=== PATIENT | female | born 1935 | race Caucasian/White ===

== ENCOUNTER 2018-09-28 07:11 | Emergency (ER) | payer MEDICARE, OTHER, SELFPAY ==
[2018-09-28 07:13] VITALS: BP 179/96; PULSE 91; RESP 18; TEMP 36.9; O2SAT 94; BMI 33.3
[2018-09-28 07:38] VITALS: BP 167/113; PULSE 84; RESP 13; O2SAT 96
[2018-09-28] MEDS: MethylPREDNISolone 125 MG/2 ML Vial IV (07:41)
[2018-09-28] MEDS: DiphenhydrAMINE 50 MG/ML Syringe 25 MG IV (07:41)
--- NOTE | 2018-09-28 07:54 | ED.VISSUMM ---
- ER Visit Summary Date of Service: 09/28/18 Chief Complaint: Facial swelling History of Present Illness: The patient is a [address] Magdiel Lorenzo III. She reports she had a woke this morning with swelling to her lower lip and right side of her face. States she had a similar episode approximately 5 weeks ago and they stopped lisinopril. She was placed on amlodipine and was doing well until today. Patient reports that she has been on desipramine for approximately 5 years for anxiety. She denies any other medications. Patient denies any change in soap, shampoo, laundry detergent, or fabric softener. No new clothing, bedding, carpeting, or pets. No new medications in the past month. Review of systems: General: No fever, chills, cold sweats. Cardiovascular: No chest pain, palpitations. Respiratory: No cough, shortness of breath, dyspnea on exertion. Gastrointestinal: No abdominal pain, nausea, vomiting, diarrhea, melena, or hematochezia. Genitourinary: No dysuria, frequency, hematuria. Skin: No rash. Neuro: No headache, numbness, weakness. Physical Examination: Vitals: Stable. Afebrile. General: Well-nourished and well-developed. Head: Normocephalic atraumatic. HEENT: Angioedema of the right lower lip and cheek. There is no involvement of her tongue or pharynx. Neck: Supple, no lymphadenopathy. No JVD. Nontender. Cardiovascular: Regular rate and rhythm. No murmurs. Respiratory: No respiratory distress. Clear to auscultation bilaterally. Abdominal: Soft, nontender, nondistended, normal bowel sounds. No guarding, rebound, or peritoneal signs. Back: Nontender. Extremities: Nontender, no edema. Skin: Normal color, no rash. Neurologic: Alert and oriented ?3. Cranial nerves II through XII are intact. Normal strength and sensation. Psych: Normal affect. Emergency Department Course and Treatment: Patient had an IV placed. She was given Benadryl, Solu-Medrol, and Pepcid IV. She has been observed over the course of 2 hours. Her symptoms are improving. Treatment Plan: Patient was discussed with her primary care physician Dr. Magdiel Lorenzo iii. At this time she will be instructed to stop the desipramine as it can cause angioedema as well. She will have this replaced with low-dose Zoloft 25 mg a day. It does not appear that amlodipine will cause angioedema. She will be placed on Pepcid, Zyrtec, and prednisone. Instructed to follow-up Dr. Ann in 2 weeks for another exam. Return to the emergency department for any worsening symptoms. Disposition: To home in improved and stable condition. Impression: 1. Angioedema. This note was generated with [employer] dictation software. It may contain incorrect words, spelling, and punctuation that were not noted in review of the chart prior to signing ED Disposition - Plan for ED Patient: Disposition: Home or Assisted Living Instructions: ED Angioedema Prescriptions: Cetirizine HCl [Zyrtec] 10 mg PO DAILY #14 capsule Prednisone [Deltasone] 40 mg PO DAILY #10 tablet Sertraline HCl [Zoloft] 25 mg PO DAILY #30 tablet Famotidine [Pepcid] 20 mg PO BID #28 tablet Referrals: Magdiel Lorenzo III, MD [Primary Care Provider] - 1-2 Weeks
[2018-09-28 08:52] VITALS: BP 146/88; PULSE 84; RESP 18; O2SAT 97
[2018-09-28 08:57] VITALS: BP 147/78; PULSE 87; RESP 16; O2SAT 97
== END 2018-09-28 08:58 | disposition home or self-care (01) ==
LOC: ED 07:50
PROVIDERS: Emergency Provider Emergency Medicine; Family Provider Family Medicine; PCP Family Medicine
DX: T78.3XXA Angioneurotic edema, initial encounter (principal); F41.9 Anxiety disorder, unspecified; I10 Essential (primary) hypertension; Z85.3 Personal history of malignant neoplasm of breast; Z79.899 Other long term (current) drug therapy
CPT/HCPCS: 96374; 96375; 99284; J7050; A4216; J3490

== ENCOUNTER 2018-11-18 10:18 | Emergency (ER) | payer MEDICARE, OTHER, SELFPAY ==
[2018-11-18 10:22] VITALS: BP 138/93; PULSE 101; RESP 17; TEMP 36.3; O2SAT 96; BMI 33.3
--- NOTE | 2018-11-18 10:42 | CT_ITS ---
STUDY: CT SOFT TISSUE NECK WITH CONTRAST REASON FOR EXAM: Female, 83 years old. Tongue swelling. History of breast cancer and radiation. RADIATION DOSAGE (If Supplied By Facility): CTDIvol = ( 22.45 ) mGy, DLP = ( 728.86 ) mGycm TECHNIQUE: The patient was scanned in a multi-detector CT scanner. High resolution transaxial imaging was performed following intravenous administration of 75 IV Isovue 370. Sagittal and coronal images were reconstructed. Individualized dose optimization techniques were used for this CT. COMPARISON: None. FINDINGS: Asymmetric edema of the mobile portion of the tongue, right greater than left. The base of the tongue is normal. No enhancing abscess or phlegmon. The lingual tonsils are normal and symmetrical. Normal bilateral parotid glands. Normal bilateral resident care spec spaces. Normal bilateral parapharyngeal spaces. Normal bilateral carotid spaces. Normal bilateral sublingual and submandibular glands and spaces. Normal visualized nasopharynx. Normal retropharyngeal space. Normal perivertebral space. Normal visualized bilateral faucial tonsils. The visualized tongue, tongue base and oropharynx are normal. The visualized cervical lymph nodes (levels I-) are within normal size limits, and maintain normal morphology. There is no demonstrated solid or cystic mass lesion. There is no abnormal contrast enhancement. Normal epiglottis, bilateral vallecula and hypopharynx. The pre-epiglottic and paraglottic adipose spaces are normal. Normal visualized bilateral piriform sinuses, aryepiglottic folds, vocal cords, and arytenoid-cricoid articulations. Normal subglottic trachea. Normal bilateral lobes of the thyroid gland. 2 mm noncalcified and indeterminate nodule in the right lung apex (series 2, images 39; series 602, images 70-71). Normal visualized paranasal sinuses. Degenerative disc space height narrowing at C3-C4, C4-C5 and C5-C6 disc space levels. Minimal degenerative retrolisthesis of C4 on C5 and C5 on C6. Minimal degenerative anterolisthesis of T2 on T3. No acute osseous abnormality. CT/Soft Tissue Neck WITH Contrast IMPRESSION: 1. Asymmetric swelling in the mobile portion of the tongue, right greater than left without enhancing abscess or phlegmon. This may be due to allergic reaction causing lingual swelling. 2. 2 mm noncalcified and indeterminate pulmonary nodule in the right lung apex. 3. Degenerative disc space height narrowing at C3-C4, C4-C5 and C5-C6 disc space levels. 4. Minimal degenerative retrolisthesis of C4-C5 and C5 on C6. 5. Minimal degenerative anterolisthesis of T2 on T3. Electronically Signed: Sunny Riley MD at 12:50 EDT , Service support ,
[2018-11-18] MEDS: DiphenhydrAMINE 50 MG/ML Syringe 25 MG IV (11:02)
--- NOTE | 2018-11-18 11:02 | ED.DCSUM_ITS ---
- ER Visit Summary Date of Service: 11/18/18 Chief Complaint: Tongue swelling History of Present Illness: The patient is a 83 F who presents with tongue swelling. Symptoms started earlier today. She has noted a mild change to her voice. No trouble breathing or swallowing. No other associated swelling. She is not sure what brought this on. She had prior episodes, and she stopped all of her medications including lisinopril. She is now on totally new medications. No other exposures to anything. No fevers or other associated symptoms. Physical Examination: Afebrile and vital signs are unremarkable. Patient alert and oriented. No acute distress. HEENT exam is unremarkable except for diffuse tongue swelling. The tongue is otherwise unremarkable. Oropharynx otherwise unremarkable. Airway intact. No stridor or drooling. Lungs clear. Heart regular. Skin and neck are unremarkable. Test Results: Labs and imaging are pending. Emergency Department Course and Treatment: Patient was treated with Benadryl, prednisone, famotidine while awaiting results. Lab work unremarkable. CT showed asymmetric swelling of the mobile tongue worse on the right side. Right lung nodule. Degenerative spine changes. On reevaluation, patient is much improved. Swelling has decreased. Voice is back to normal. No new or different symptoms. Patient will continue prednisone, Benadryl, famotidine at home. Follow-up with her doctor. Return for any new or worsening issues. Treatment Plan: As above Disposition: Discharge Impression: 1. Tongue swelling 2. Right lung nodule This note was generated with [employer]ation software. It may contain incorrect words, spelling, and punctuation that were not noted in review of the chart prior to signing ED Disposition - Plan for ED Patient: Referrals: Magdiel Lorenzo III, MD [Primary Care Provider] -
[2018-11-18] MEDS: predniSONE 20 MG Tablet 40 MG PO (11:03)
[2018-11-18 11:14] LABS: Absolute Lymphocyte Count 0.73 X10^3/ul (0.83-4.51); Absolute Neutrophil Count 4.3 X10^3/uL (2.0-7.7); Basophil# 0.02 X10^3/uL; Basophil% 0.4 % (0-1); Eosinophil# 0.05 X10^3/uL; Eosinophils% 0.9 % (0-5); Hematocrit 39.7 % (37-47); Hemoglobin 12.7 g/dl (12.0-15.0); Lymphocyte # 0.73 X10^3/ul (4.0); Lymphocyte % 13.2 % (19-41); Mean Corpuscular Hgb 29.7 pg (27.0-32.0); Mean Corpuscular Volume 92.8 fL (81-99); Mean Platelet Vol. 9.6 fl (6.2-12.0); Monocyte# 0.43 X10^3/uL; Monocyte% 7.8 % (0-10); Neutrophil # 4.31 X10^3/uL (2.7-7.7); Neutrophil % 77.7 % (47-70); Platelet Count 234 K/mm3 (150-450); RBC Distribution Width CV 14.7 % (11.6-14.6); RBC Distribution Width SD 49.5 fl (35.1-43.9); Red Blood Count 4.28 M/mm3 (4.2-5.4); White Blood Count 5.5 K/mm3 (4.4-11.0)
[2018-11-18 11:15] LABS: POSITIVE COUNT NO; POSITIVE DIFFERENTIAL NO; POSITIVE MORPHOLOGY NO
[2018-11-18 11:24] LABS: Anion Gap 5 (5-15); BUN 16 mg/dL (7-18); BUN/Creat Ratio 17.9 RATIO (10-20); Calcium,Total 9.1 mg/dL (8.5-10.1); Chloride 106 mmol/L (98-107); EST Glomerular Filtration Rate 64 mL/min (>60); Est Glom Filt Rate - Afr Amer 78 mL/min (>60); Estimated Creatinine Clearance 45.89 ml/min; Glucose 99 mg/dL (74-106); Potassium 3.2 mmol/L (3.5-5.1); Sodium Level 139 mmol/L (136-145)
[2018-11-18 12:38] VITALS: BP 154/83; PULSE 87; RESP 15; O2SAT 97
--- NOTE | 2018-11-18 13:59 | ED.DEP ---
ED Disposition - Plan for ED Patient: Instructions: Angioedema Prescriptions: DiphenhydrAMINE [Benadryl] 25 mg PO TID PRN PRN 5 Days #15 cap PRN Reason: Swelling Prescription Printed Prednisone [Deltasone] 40 mg PO DAILY #10 tab Prescription Printed Famotidine [Pepcid] 20 mg PO BID 5 Days #10 tab Prescription Printed Referrals: Magdiel Lorenzo III, MD [Primary Care Provider] -
[2018-11-18 14:34] VITALS: BP 120/96
== END 2018-11-18 14:37 | disposition home or self-care (01) ==
LOC: ED 11:03
PROVIDERS: Emergency Provider Emergency Medicine; Family Provider Family Medicine; PCP Family Medicine
DX: R22.0 Localized swelling, mass and lump, head (principal); R91.1 Solitary pulmonary nodule; I10 Essential (primary) hypertension; Z79.899 Other long term (current) drug therapy; Z87.891 Personal history of nicotine dependence
CPT/HCPCS: 70491; 80048; 85025; 96374; 96375; 99283; Q9967; J3490

== ENCOUNTER 2019-02-11 11:11 | Emergency (ER) | payer MEDICARE, OTHER, SELFPAY ==
[2019-02-11 11:12] VITALS: BP 156/64; PULSE 102; RESP 18; TEMP 36.9; O2SAT 94; BMI 32.6
[2019-02-11] MEDS: DiphenhydrAMINE 50 MG/ML Syringe 25 MG IV (11:50)
[2019-02-11] MEDS: MethylPREDNISolone 125 MG/2 ML Vial IV (11:50)
[2019-02-11 13:10] VITALS: BP 143/79; PULSE 79; RESP 23; O2SAT 90
--- NOTE | 2019-02-11 14:54 | ED.DCSUM_ITS ---
- ER Visit Summary Date of Service: 02/11/19 Chief Complaint: Tongue swelling History of Present Illness: The patient is a 83 F with right side tongue swelling that started around 8:30 AM today. She ate Monegasque toast. She denies any new food exposures or medication exposures. She was previously on lisinop ril and had an episode like this in the past in October 2018. She was treated with prednisone, Benadryl, and Pepcid. Her symptoms resolved gradually over time. She did not follow-up for this. She denies any other associated symptoms or complaints. Physical Examination: Afebrile and vital signs unremarkable. She does have right side tongue swelling only. The mouth otherwise is normal. Lips normal. Neck normal. Skin normal. Speech is slightly slurred/dysarthric. Lungs are clear. Test Results: None performed Emergency Department Course and Treatment: Patient was monitored. Treated with Benadryl, Pepcid, Solu-Medrol. She was observed for almost 4 hours. She improved quickly over the first hour and then she continued to gradually improve over the next few hours. Her voice returned to normal. She had no new or different symptoms. Will prescribe Benadryl, Pepcid, prednisone. Patient will follow-up with her PCP for outpatient monitoring and allergy testing. Risks were discussed, and patient understands. Treatment Plan: As above Disposition: Discharge Impression: 1. Tongue swelling This note was generated with [employer] dictation software. It may contain incorrect words, spelling, and punctuation that were not noted in review of the chart prior to signing ED Disposition - Plan for ED Patient: Referrals: Magdiel Lorenzo III, MD [Primary Care Provider] -
--- NOTE | 2019-02-11 14:56 | ED.DEP ---
ED Disposition - Plan for ED Patient: Instructions: ED Angioedema Prescriptions: DiphenhydrAMINE [Benadryl] 25 mg PO TID 5 Days #15 cap Prescription Printed Famotidine [Pepcid] 20 mg PO BID 5 Days #10 tab Prescription Printed Prednisone 40 mg PO UD 4 Days #16 tab Prescription Printed Referrals: Magdiel Lorenzo III, MD [Primary Care Provider] -
[2019-02-11 15:15] VITALS: BP 136/93; PULSE 85; RESP 16; O2SAT 92
== END 2019-02-11 15:16 | disposition home or self-care (01) ==
LOC: ED 11:45
PROVIDERS: Emergency Provider Emergency Medicine; Family Provider Family Medicine; PCP Family Medicine
DX: R22.0 Localized swelling, mass and lump, head (principal); I10 Essential (primary) hypertension; F41.9 Anxiety disorder, unspecified; Z79.899 Other long term (current) drug therapy; Z87.891 Personal history of nicotine dependence
CPT/HCPCS: 96374; 96375; 99284; J7050; J3490

== ENCOUNTER 2020-10-09 08:00 | Outpatient (RCR) | payer MEDICARE, OTHER, SELFPAY | END 2020-11-13 23:59 | LOC: IMMUN 08:00 | PROVIDERS: PCP Family Medicine; Referring Provider Family Medicine; Visit Provider Family Medicine | DX: Z23 Encounter for immunization (principal) | CPT/HCPCS: 0001A; 0002A; 91300 ==

== ENCOUNTER 2020-12-26 09:55 | Emergency (ER) | payer MEDICARE, OTHER, SELFPAY ==
[2020-12-26 09:56] VITALS: BP 164/81; PULSE 86; RESP 16; TEMP 36.7; O2SAT 95; BMI 35.7
--- NOTE | 2020-12-26 10:06 | RAD_ITS ---
STUDY: X-RAY - PELVIS AND LEFT HIP REASON FOR EXAM: Female, 85 years old. Pain. No known injury. TECHNIQUE: 3 views of the pelvis and hip. COMPARISON: Comparison is made with prior examination dated 12/11/2012. FINDINGS: There is a non-specific bowel gas pattern. There are multiple calcified phleboliths. There is narrowing with cortical sclerosis and osteophyte formation of the sacroiliac joint consistent with degenerative osteoarthritic changes. Normal bilateral superior and inferior pubic rami. Normal pubic symphysis. Normal bilateral ischial tuberosities. The patient is status post right total hip replacement. The alignment. Normal visualized femoral head. Normal acetabulum. There is mild articular joint space narrowing of the hip. 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 Electronically Signed: Adrian Valadez MD at 11:11 EDT , Service support ,
--- NOTE | 2020-12-26 10:07 | EX.ED.DYSGE1 ---
HPI History of Present Illness Chief Complaint: Lower Extremity Injury Informant: patient and spouse/S.O. Onset/Context/Timing Onset: Days (4 days) Context: Gradual Onset Timing: Waxes and wanes Current Severity: Mild Maximum Severity: Moderate Narrative Narrative: Patient presents secondary left hip and groin pain. Symptoms of been ongoing for the past 4 days. She denies any specific injury but does note increased activity over the past 3 weeks. She states she has had similar pain in the past but typically would go away on its own. Pain is been more persistent with this round. She denies paresthesias. No back pain. [facility] Medical History Anxiety disorder Breast cancer, right HTN (hypertension) Home Medications amlodipine 5 mg PO DAILY 09/28/18 [History Last Taken 11/18/18] sertraline [Zoloft] 25 mg PO DAILY #30 tab 09/28/18 [Rx Last Taken 11/18/18] hydrochlorothiazide 12.5 mg PO DAILY 11/18/18 [History Last Taken 11/18/18] hydrocodone-acetaminophen 1 tab PO Q6H PRN 3 Days #10 tab 12/26/20 [Rx Last Taken Unknown] Allergy/AdvReac Type Severity Reaction Status Date / Time desipramine Allergy Angioedema Verified 12/26/20 09:56 lisinopril Allergy Angioedema Verified 12/26/20 09:56 shrimp Allergy Upset Verified 12/26/20 09:56 Stomach Surgical History S/P hip hemiarthroplasty Social History Smoking Status: Current some day smoker tobacco type: cigarettes ROS ROS ED Constitutional Constitutional ED: Denies chills or fever(s) Eyes Eyes: Denies change in vision ENT ENT ED: Denies sore throat Cardiovascular Cardiovascular: Denies chest pain Respiratory/Chest Respiratory/Chest: Denies cough or dyspnea Gastrointestinal Gastrointestinal: Denies abdominal pain, diarrhea, nausea or vomiting Genitourinary Genitourinary ED: Denies dysuria Musculoskeletal Musculoskeletal: Reports arthralgias; Denies back pain Integumentary Denies rash Neurologic Neurologic: Denies headache(s), paresthesias or weakness Allergic/Immunologic Allergic/Immunologic ED: Denies urticaria EXAM Physical Exam Const Vital Signs: 12/26/20 09:56 Temperature 98.1 F Temperature Source Oral Pulse Rate 86 Respiratory Rate 16 Blood Pressure 164/81 H Blood Pressure Mean 108 Pulse Ox 95 Oxygen Delivery Method Room Air Positive well nourished and well developed General Appearance ED: well developed HEENT Reports normocephalic and head/scalp atraumatic Eyes PERRL and EOMs intact bilaterally Neck supple Chest Wall inspection of chest normal and palpation of chest normal Resp normal respiratory effort and clear to auscultation bilaterally Cardio regular rate and regular rhythm GI normal to inspection, nondistended, normoactive bowel sounds Palpation: soft Extremity normal to inspection Extremity Narrative: Minimal tenderness over the anterior left hip. Noted lateral tenderness. Full range of motion without difficulty. Strong distal pulses and normal sensation. Neuro oriented x3 and no sensory deficits noted Sensorium / Orientation: alert Motor Exam: strength 5/5 throughout Psych mental status grossly normal Skin no rashes or lesions noted MDM MDM MDM Narrative Medical decision making narrative: Left hip and pelvis x-rays obtained. Radiography Diagnostic Testing: Radiology Impression Hip/Pelvis X-Ray 12/26/20 10:06 IMPRESSION: Mild degree of degenerative changes of the left hip joint. Electronically Signed: Adrian Valadez MD at 11:11 EDT , Service support , Treatment and Re-Evaluation Comments:: X-ray per my interpretation reveals no acute fracture. Radiologist interpretation is also reviewed. Test results discussed with the patient. She has an appointment to see orthopedics in early December. She will be given a prescription for [place] which she will use only if pain is unbearable. She will try using Tylenol and ibuprofen. Discharge Plan Triage Chief Complaint: Lower Extremity Injury ED Provider: Rajni Hensley Dx/Rx/DC Orders Clinical Impression: Strain of left groin Instructions: ED Groin Strain Prescriptions: New hydrocodone-acetaminophen 5-325 mg tablet 1 tab PO Q6H PRN (Reason: pain) 3 Days Qty: 10 RF: 0 No Action amlodipine 5 MG tablet 5 mg PO DAILY RF: 0 sertraline [Zoloft] 25 MG tablet 25 mg PO DAILY Qty: 30 RF: 0 hydrochlorothiazide 12.5 MG tablet 12.5 mg PO DAILY RF: 0 Primary Care Provider: Sam York Referrals: Sam York MD [Primary Care Provider] - 1 Week if not improving Disposition Disposition: Home, Self Care
[2020-12-26 11:46] VITALS: BP 168/74; RESP 16; O2SAT 100
== END 2020-12-26 11:49 | disposition home or self-care (01) ==
PROVIDERS: Emergency Provider Emergency Medicine; PCP Family Medicine
DX: S39.011A Strain of muscle, fascia and tendon of abdomen, initial encounter (principal); F17.210 Nicotine dependence, cigarettes, uncomplicated; I10 Essential (primary) hypertension; X58.XXXA Exposure to other specified factors, initial encounter; Z79.899 Other long term (current) drug therapy
CPT/HCPCS: 73502; 99282

== ENCOUNTER 2021-02-07 07:00 | Outpatient (RCR) | payer MEDICARE, OTHER, SELFPAY ==
--- NOTE | 2021-01-10 08:16 | HP.PTEVAL_ITS ---
Patient's Visit Information RADHA WATTS is a 85 year old F referred to Physical Therapy by DENISSE Mon with a diagnosis of L groin strain goes by Lisa. Date of Evaluation: 01/10/21 Physical Therapist: Otilio Clay, PT, ATC - Visit Plan Frequency: 3x /Week Duration: 4-6 Weeks Plan: B LE strengthening, core strengthening, B LE stretching, bike, and HEP - Subjective Pt reports her L hip has been sore for 3 weeks. Pt reports she had an xray, which revealed no significant findings other than a L groin strain. Pt reports she really doesnt have a lot of pain, just some weakness. Pt reports she has never used an AD, but now she has to secondary to not feeling steady. Pt reports she always worked out prior to [facility], but has stayed home since that. No tingling or numbness in her L groin region. No sleep difficulty secondary to pain. Pt reports she has stairs in her house, and notes she has to use her hand rails secondary to LE weakness. Pt reports no LBP at this time. Pt reports no pain currently, and notes she has not had pain over the past week. - Pain L groin Pain Intensity (Out of 10): 0 - Objective Neuro: B LE sensation is WNL to light touch. B patellar reflex= 2/3. ROM: B LE's are WFL. MMT: B LE's are rated at 4-/5. Gait: Pt ambulates with a trendelenburg gait pattern indicating mild core weakness. Stairs: Pt negotiates stairs reciprocally, but requires 2 hand rails - Goals Goal 1:: Increase B LE strength x 1 grade to aid with stair negotiation Goal Time Frame: 4-6 Weeks Goal 2:: Decrease L groin pain x 100% to aid with ambulation Goal Time Frame: 4-6 Weeks Goal 3:: I with HEP Goal Time Frame: 4-6 Weeks - Rehabilitation Potential Physical Therapy Diagnosis: Pt has difficulty with stair negotiation, and difficulty with IADLS secondary to generalized debility. Rehabilitation Potential: Good - Anticipated Interventions Patient/Client Instruction: Educate patient on: Condition, Plan of Care For the Purpose of:: To improve self management Therapeutic Exercise to Include: Strength training, Endurance training, Balance training, Flexibilty training, Gait and locomotor training, Active ROM For the Purpose of:: To decrease pain, To improve muscle performance and motor f unction, To improve gait and locomotor functions Thank you for the opportunity to evaluate your patient. For Medicare and Medicare HMO plans, please review the plan of care and approve it. It will need to be FAXED BACK to us at [phone] for Medicare purposes. For Medicare only, by signing this I certify the plan of care. Please let me know if there are questions or concerns regarding this plan of care. Physician Signature: Date:
--- NOTE | 2021-02-07 07:24 | HP.PTDCSUM ---
It has been my pleasure to treat RADHA WATTS referred by DENISSE Mon, with the diagnosis of L groin strain goes by Lisa for a total of 13 visit(s). Discharge Date: Please see the following information for a summary of their discharge status. Subjective: Pt reports no pain this date. Ready for discharge L groin Pain Intensity (Out of 10): 0 % Improvement: 100 Objective/Function: L hip pain 0/10. B LE strength 5/5 throughout. Pt is I with HEP. Rx goals achieved Goal 1:: Increase B LE strength x 1 grade to aid with stair negotiation Goal Progress: Goal Met Goal 2:: Decrease L groin pain x 100% to aid with ambulation Goal Progress: Goal Met Goal 3:: I with HEP Goal Progress: Goal Met Plan: Discharge If there are questions or concerns regarding this patient's physical therapy, please feel free to call me at [phone]. Thank you for the referral of this patient. Sincerely, Otilio Clay, PT, ATC Balance/Gait/Functional tests - Balance/Special Test Scores Lower Extremity Functional Score: 62
== END 2021-02-07 19:00 | disposition home or self-care (01) ==
LOC: PT 07:00
PROVIDERS: PCP Family Medicine; Referring Provider Physician Assistant Surgical; Visit Provider Physician Assistant Surgical
DX: M16.12 Unilateral primary osteoarthritis, left hip (principal)
CPT/HCPCS: 97110; 97161; 97164

== ENCOUNTER 2024-06-12 13:20 | Inpatient (IN) | payer MEDICARE, OTHER, SELFPAY ==
[2024-06-12] VITALS (13 sets, daily range): BP systolic 140–167; BP diastolic 74–101; PULSE 71–96; RESP 14–24; TEMP 35.6–36.6; O2SAT 82–96; BMI 34.5; BMI 33.5
--- NOTE | 2024-06-12 14:11 | CT_ITS ---
STUDY: CTA CHEST REASON FOR EXAM: Female, 88 years old. Hypoxia. RADIATION DOSAGE (If Supplied By Facility): CTDIvol = ( 12.4 ) mGy, DLP = ( 484.77 ) mGycm TECHNIQUE: The examination was performed with the intravenous administration of IV 100mL Isovue-370. Post-processing of the angiographic images was performed, with multiplanar reformation and 3D reconstruction. Individualized dose optimization techniques were used for this CT. COMPARISON: None. FINDINGS: Intraluminal filling defects in the proximal aspect of the right upper lobe pulmonary artery and its distal branches. There is also evidence of a intraluminal filling defects in the posterior right upper lobe pulmonary arterial branches in keeping with pulmonary emboli. Intraluminal filling defects are also seen in branches of the left upper lobe pulmonary artery. Smaller intraluminal filling defects seen in branches of the left lower lobe pulmonary artery. Normal thoracic aorta and visualized great vessels. There is no demonstrated aortic dissection. Normal heart and pericardium. There are visualized mediastinal lymph nodes, which are within normal size limits, and with normal morphology. Normal hilar regions. Normal visualized trachea and bronchi. Moderate right pleural effusion with the volume loss in the right hemithorax involving the right middle lobe as well as the right lower lobe. Normal chest wall structures. There are degenerative changes of thoracic spine. Almost complete collapse of the lower dorsal vertebrae and loss of height of a mid dorsal vertebrae. There is a 1.3 cm hypodensity in the medial aspect of the right lobe of the liver adjacent to the falciform ligament suggestive of a small cyst. There is also evidence of a cystic structure in the posterior lateral aspect in the right lobe of liver superiorly measuring 5.1 cm x [address]/CTA Chest W/WO Contrast IMPRESSION: Moderate-sized right pleural effusion with volume loss in the right middle lobe and right lower lobes with evidence of pulmonary emboli in the right upper lobe pulmonary artery and to lesser extent branches of the left upper lobe. Electronically Signed: Adrian Valadez MD at 15:38 EST ,
--- NOTE | 2024-06-12 14:12 | EKG12_ITS ---
Test Reason : KB Blood Pressure : */* mmHG Vent. Rate : 86 BPM Atrial Rate : 86 BPM P-R Int : 148 ms QRS Dur : 158 ms QT Int : 426 ms P-R-T Axes : 53 -39 125 degrees QTcB Int : 509 ms Sinus rhythm with occasional Premature ventricular complexes Left axis deviation Left bundle branch block Abnormal ECG Confirmed by ANABELL GUAMAN, ZEKE ([id number]), staff editor YARED LAGOS ([id number]) on 06/13/2024 9:24:56 AM Referred By: SOB Confirmed By: ZEKE HUNG MD
--- NOTE | 2024-06-12 14:14 | EX.ED.DYSGE1 ---
HPI History of Present Illness Chief Complaint: Shortness of Breath Informant: patient and family Narrative Narrative: Sent from PCP office for hypoxia. 6-month follow-up today. Reported 1 month history of fatigue weakness dyspnea. She has no cough. She states she was 88% in the office. She had a chest x-ray outpatient reported pneumonia to her sent to the ED. However she denies any cough symptoms. Prior to a month ago she denies recent illness denied any chest pains prior. Denies recent travel or surgeries. No history of PE or DVT. Remote breast cancer 15 years ago right mastectomy with radiation therapy at that time. History of hypertension depression intermittent lymphedema on hydrochlorothiazide and amlodipine. Denies any black or bloody stools. She states her leg swelling is not significant much better than previously. Prior similar symptoms: No PFSH PFSH Medical History Osteoporosis Smoker Breast cancer, right Anxiety disorder HTN (hypertension) Home Medications ?Medication ?Instructions ?Recorded ?Last Taken ?Type amlodipine 5 mg tablet 5 mg PO DAILY 09/28/18 06/12/24 History epinephrine 0.3 mg/0.3 mL 0.3 ml IM PRN 06/12/24 Unknown History injection, auto-injector hydrochlorothiazide 12.5 mg capsule 12.5 mg PO DAILY 06/12/24 06/12/24 History sertraline 50 mg tablet 50 mg PO DAILY 06/12/24 06/12/24 History Allergy/AdvReac Type Severity Reaction Status Date / Time desipramine Allergy Angioedema Verified 12/26/20 09:56 lisinopril Allergy Angioedema Verified 12/26/20 09:56 shrimp Allergy Upset Verified 12/26/20 09:56 Stomach Surgical History S/P hip hemiarthroplasty Social History (Updated 06/12/24 @ 22:[address] Sagrario Quintana DO) household members: family housing: house Smoking Status: Current some day smoker tobacco type: cigarettes alcohol intake: never substance use type: does not use ROS ROS ED Constitutional Constitutional ED: Denies chills, fever(s) or sweats ENT ENT ED: Denies sore throat Cardiovascular Cardiovascular: Denies chest pain, leg edema, palpitations or racing heartbeat Respiratory/Chest Respiratory/Chest: Reports dyspnea; Denies cough or dyspnea on exertion Gastrointestinal Gastrointestinal: Denies abdominal pain, diarrhea, nausea or vomiting Genitourinary Genitourinary ED: Denies dysuria, hematuria or urinary frequency Musculoskeletal Musculoskeletal: Denies back pain, extremity pain or neck pain Integumentary Denies rash or wounds Neurologic Neurologic: Reports weakness; Denies headache(s) or paresthesias EXAM Physical Exam Const Vital Signs: 06/12/24 13:21 06/12/24 13:31 06/12/24 13:34 Temperature 96.0 F L Temperature Source Temporal Pulse Rate 96 Respiratory Rate 22 H Respiratory Effort Short of Breath Short of Breath Respiratory Depth Shallow Respiratory Pattern Normal Normal Blood Pressure 158/101 H Blood Pressure Mean 120 Pulse Ox 82 Oxygen Delivery Method Room Air Nasal Cannula Oxygen Flow Rate (L/min) 4 06/12/24 14:12 06/12/24 14:22 06/12/24 15:00 Temperature Temperature Source Pulse Rate 78 71 Respiratory Rate 14 14 Respiratory Effort Respiratory Depth Respiratory Pattern Blood Pressure 140/78 H 142/74 H Blood Pressure Mean 98 96 Pulse Ox 94 95 Oxygen Delivery Method Room Air Nasal Cannula Nasal Cannula Oxygen Flow Rate (L/min) 06/12/24 15:46 06/12/24 16:00 Temperature Temperature Source Pulse Rate 80 84 Respiratory Rate 16 24 H Respiratory Effort Respiratory Depth Respiratory Pattern Blood Pressure 167/91 H 153/94 H Blood Pressure Mean 116 113 Pulse Ox 95 94 Oxygen Delivery Method Nasal Cannula Nasal Cannula Oxygen Flow Rate (L/min) 4 4 Positive well nourished and well developed General Appearance ED: well developed and NAD; Negative for pallor HEENT Reports moist mucous membranes normocephalic and atraumatic Eyes General Eye ED: Yes normal appearance of both eyes; Negative for pale conjunctiva or scleral icterus Neck full ROM Chest Wall Chest: Negative for tenderness Resp normal respiratory effort and normal air movement Effort and Inspection: symmetric chest movement; Negative for respiratory distress Cardio regular rate, regular rhythm and no murmurs Peripheral Pulses: pulses 2+ throughout GI normal to inspection, nondistended, normoactive bowel sounds and non-tender Palpation: Negative for guarding or rebound tenderness present Extremity normal to inspection General Extremety ED: Negative for edema or tenderness General Extremity: Negative for edema Neuro oriented x3 and no sensory deficits noted Sensorium / Orientation: awake and alert Skin no rashes or lesions noted and no wounds General Skin Exam: Negative for pallor MDM MDM MDM Narrative Medical decision making narrative: Interventions / MDM: Differential diagnosis: Hypoxia, left bundle branch block, NSTEMI, pulmonary embolism Diagnosis considered but do not suspect: N/A My EKG interpretation: Sinus rate of 86, no ST changes. Left bundle branch block. Imaging independently reviewed and interpreted by myself: CT angiogram chest: Upper lobes pulm embolism along with left lower lobe branches. Moderate right pleural effusion. External documents reviewed: N/A Test considered but not ordered:N/A ED course: Patient currently on 4 L nasal cannula no respiratory distress. No significant clinical anemia with no pallor conjunctiva pallor of the hands. Due to hypoxia reported pneumonia concern for possible or effusion unclear reasons. Her EKG has a new left bundle branch block. The EKG from 2012 with report scanned in no imagings reported sinus with PVCs. Workup findings troponin of 1273. Creatinine 0.95. Hemoglobin 14. Normal BNP of 252. CT positive for pulmonary embolism upper branches along the left lower branch, no reported heart strain. Moderate pleural effusion the right side. Ordered for DVT studies lower extremities however her department will obtain in the morning as she has been admitted. No PE or DVT risk factors. Started on heparin drip. I discussed with community health nurse supervisor , Agrees is likely secondary to her pulmonary embolism with the NSTEMI. she will need an echocardiogram with her left bundle branch block. Test 2.6 oral replacement given. Magnesium added which was normal. This was discussed with hospitalist Dr. Sagrario Quintana. Patient admitted to PCU. Patient and family updated. Re-evaluation: stable Disposition discussed with patient/family/significant other: Patient and family Case discussed with consulting clinician: Cardiology, hospitalist This note was generated with [employer] dictation software. It may contain incorrect words, spelling, and punctuation that were not noted in checking the note before signing. Lab Data Attestation: I reviewed the patient's lab results. Labs: Laboratory Results - last 24 hr 06/12/24 06/12/24 13:23 13:35 WBC 8.5 RBC 4.86 Hgb 14.0 Hct 43.8 MCV 90.1 MCH 28.8 MCHC 32.0 RDW Std Deviation 47.5 H RDW Coeff of Evangelista 14.5 Plt Count 307 MPV 11.1 Immature Gran % (Auto) 0.700 Neut % (Auto) 84.6 H Lymph % (Auto) 6.5 L [place] % (Auto) 7.4 Eos % (Auto) 0.2 Baso % (Auto) 0.6 Absolute Neuts (auto) 7.2 Absolute Lymphs (auto) 0.55 L Nucleated RBC % 0 PT 14.4 14.3 INR 1.1 1.1 APTT 24.8 26.4 Sodium 137 Potassium 2.6 L* Chloride 102 Carbon Dioxide 28.0 Anion Gap 7 BUN 29 H Creatinine 0.95 Estim Creat Clear Calc 49.93 Est GFR (MDRD) Af Amer 72 Est GFR (MDRD) Non-Af 59 L BUN/Creatinine Ratio 30.6 H Glucose 130 H Calcium 9.4 Magnesium 2.0 Total Bilirubin 0.70 AST 27 ALT 24 Alkaline Phosphatase 129 H Troponin I High Sens 1273 H* B-Natriuretic Peptide 252.1 H Total Protein 7.7 Albumin 3.1 L Globulin 4.6 H Albumin/Globulin Ratio 0.7 L Radiography Diagnostic Testing: Clinical Impression(s) from Imaging Studies Chest CTA 06/12/24 14:11 IMPRESSION: Moderate-sized right pleural effusion with volume loss in the right middle lobe and right lower lobes with evidence of pulmonary emboli in the right upper lobe pulmonary artery and to lesser extent branches of the left upper lobe. Electronically Signed: Adrian Valadez MD at 15:38 EST Reading Location ID and State: [address] [place] [address] , Service support , Critical Care Time Critical Care Time: Yes Critical care time (excluding procedures): 30-74 minutes, Discussing w/Patient &/or Family/Structural Steel Detailer, Discussing w/Consultants, Arranging Admission or Transfer, Performing Direct Patient Care at Bedside and - (40 minutes) Discharge Plan Dx/Rx/DC Orders Clinical Impression: Non-ST elevation SD (NSTEMI), Hypoxia, Pleural effusion, Complete left bundle branch block, Hypokalemia Disposition Disposition: Acute Care [facility] Discharge Date/Time: 06/12/24 18:22
[2024-06-12 14:36] LABS: Absolute Lymphocyte Count 0.55 X10^3/uL (0.83-4.51); Absolute Neutrophil Count 7.2 X10^3/uL (2.0-7.7); Basophil# 0.05 X10^3/uL; Basophil% 0.6 % (0-1); Eosinophil# 0.02 X10^3/uL; Eosinophils% 0.2 % (0-5); Hematocrit 43.8 % (37-47); Lymphocyte # 0.55 X10^3/ul (0.83-4.51); Lymphocyte % 6.5 % (19-41); Mean Corpuscular Hgb 28.8 pg (27.0-32.0); Mean Corpuscular Volume 90.1 fL (81-99); Mean Platelet Vol. 11.1 fl (6.2-12.0); Monocyte# 0.63 X10^3/uL; Monocyte% 7.4 % (0-10); NRBC Flagged by Analyzer 0 % (0-5); Neutrophil # 7.17 X10^3/uL (2.7-7.7); Neutrophil % 84.6 % (47-70); POSITIVE DIFFERENTIAL YES; Platelet Count 307 K/mm3 (150-450); RBC Distribution Width CV 14.5 % (11.6-14.6); RBC Distribution Width SD 47.5 fl (35.1-43.9); Red Blood Count 4.86 M/mm3 (4.2-5.4); White Blood Count 8.5 K/mm3 (4.4-11.0)
[2024-06-12 14:37] LABS: International Normalized Ratio 1.1; Prothrombin Time (Protime)PT. 14.3 SECONDS (11.7-14.9)
[2024-06-12 14:38] LABS: Partial Thromboplast Time 26.4 Seconds (24.1-36.2)
[2024-06-12 14:52] LABS: ALB/GLOB Ratio 0.7 RATIO (0.9-2.4); AST(SGOT) 27 U/L (15-37); Alanine Aminotransfer ALT/SGPT 24 U/L (13-56); Albumin, Serum 3.1 g/dL (3.2-5.0); Alkaline Phosphatase 129 U/L (45-117); Anion Gap 7 (5-15); BUN 29 mg/dL (7-18); BUN/Creat Ratio 30.6 RATIO (10-20); Calcium,Total 9.4 mg/dL (8.5-10.1); Chloride 102 mmol/L (98-107); Creatinine, Serum 0.95 mg/dL (0.55-1.02); EST Glomerular Filtration Rate 59 mL/min (>60); Est Glom Filt Rate - Afr Amer 72 mL/min (>60); Estimated Creatinine Clearance 49.93 ml/min; Globulin 4.6 g/dL (2.2-4.2); Glucose 130 mg/dL (74-106); Potassium 2.6 mmol/L (3.5-5.1); Protein, Total 7.7 g/dL (6.4-8.2); Sodium Level 137 mmol/L (136-145); Troponin-I HS 1273 pg/mL (3.0-54.0)
[2024-06-12 15:06] LABS: BNP,B-Type NATRIURETIC PEPTIDE 252.1 pg/mL (0-100)
[2024-06-12] MEDS: Potassium Chloride Oral Tablet 20 MEQ 40 MEQ PO ×2 (15:44→21:07)
--- NOTE | 2024-06-12 16:29 | ED.RN ---
ININFILTRATED WHILE IN CT. ATTEMPTED TO START VIA U/S
--- NOTE | 2024-06-12 16:40 | ECHOCS_ITS ---
Reason For Study: ELEVATED TROPONIN Procedure This was a 2D Doppler, Color Flow transthoracic echocardiogram. The study was technically difficult. Contrast injection was performed. Exam performed portable in patient room. Left Ventricle Normal LV size. Moderate concentric left ventricular hypertrophy. The left ventricular ejection fraction is 20 %. Septal motion consistent with bundle branch block. Severe segmental systolic dysfunction (see wall motion). [place] : Severely Hypokinetic. Mid-anteroseptal : Severely Hypokinetic. Right Ventricle Normal RV size. Normal systolic function. Atria Normal left atrium. Normal right atrium. Mitral Valve There is mild to moderate mitral annular calcification. Tricuspid Valve Normal tricuspid valve. Mild (1+) tricuspid valve insufficiency. Pulmonary artery systolic pressure is 41 mmHg. Aortic Valve The aortic valve is not well visualized. Pulmonic Valve The pulmonic valve is not well visualized. Great Vessels Normal aortic root. Pericardium/Pleural No pericardial effusion. Medication Diluted definity 2ml given slow IV push to enhance endocardial definition. MMode/2D Measurements & Calculations LVIDd: 4.2 cm IVSd: 1.4 cm LVOT diam: 2.0 cm LVIDs: 3.9 cm LVPWd: 1.2 cm RVDd: 3.6 cm FS: 7.2 % LVOT area: 3.0 cm2 asc Aorta Diam: 3.7 cm LAV(MOD-bp): 35.5 ml LVAd ap4: 37.0 cm2 LAV(MOD-bp) Indexed: 17.6 ml/m2 LVLd ap4: 8.1 cm LAV(MOD-sp2): 43.6 ml EDV(MOD-sp4): 134.6 ml LAV(MOD-sp4): 22.3 ml EDV(sp4-el): 144.5 ml LVAs ap4: 31.9 cm2 LVLs ap4: 7.5 cm ESV(MOD-sp4): 111.8 ml ESV(sp4-el): 115.2 ml EF(MOD-sp4): 16.9 % EF(sp4-el): 20.3 % LVAd ap2: 36.2 cm2 SV(MOD-sp4): 22.8 ml SV(MOD-sp2): 28.1 ml LVLd ap2: 8.3 cm SI(MOD-sp4): 11.3 ml/m2 SI(MOD-sp2): 13.9 ml/m2 EDV(MOD-sp2): 133.4 ml EDV(sp2-el): 134.1 ml LVAs ap2: 31.3 cm2 LVLs ap2: 7.7 cm ESV(MOD-sp2): 105.3 ml ESV(sp2-el): 107.7 ml EF(MOD-sp2): 21.0 % SV(sp4-el): 29.3 ml Ao sinus diam: 3.[address] Junction: 2.9 cm LA dimension(2D): 3.5 cm LA A4 area: 13.0 cm2 RA A4 area: 11.2 cm2 TAPSE: 2.2 cm Doppler Measurements & Calculations MV A max abdirashid: 106.4 cm/sec Lat Peak E' Abdirashid: 4.8 cm/sec Med Peak E' Abdirashid: 4.9 cm/sec Ao V2 max: 145.2 cm/sec LV V1 max: 131.9 cm/sec SV(LVOT): 60.8 ml Ao max P.4 mmHg LV V1 max P.0 mmHg Ao V2 mean: 92.2 cm/sec LV V1 mean P.4 mmHg Ao mean P.0 mmHg LV V1 mean: 101.6 cm/sec Ao V2 VTI: 23.1 cm LV V1 VTI: 20.0 cm AV (velocity ratio): 0.86 MAMADOU(I,D): 2.6 cm2 MAMADOU(V,D): 2.8 cm2 PA V2 max: 73.1 cm/sec TR max abdirashid: 308.2 cm/sec TR max P.0 mmHg ECHO/Echo Complete W/ Contrast Interpretation Summary Normal LV size. The left ventricular ejection fraction is 20 %. Moderate concentric left ventricular hypertrophy. Septal motion consistent with bundle branch block. Severe segmental systolic dysfunction (see wall motion). Contrast injection was performed. Compared to previous study, the left ventricu lar systolic function has worsened.. Ordering Physician: Sagrario Quintana Performed By: Eri Marmolejo RDCS
--- NOTE | 2024-06-12 16:41 | PCM.HP.STD ---
HPI - General General Date of Admission: 06/12/24 Date of Service: 06/12/24 Chief Complaint: Shortness of breath HPI Narrative RADHA WATTS, is a 88 F who presented to the emergency department at [facility] on 06/12/2024 with a chief complaint of shortness of breath. She was sent from her primary cared physician's office for hypoxia and was there for her 6-month follow-up. Patient reports about a 1 month history of fatigue, weakness, and shortness of breath at rest and with exertion. She noted that her symptoms seem to be worse with exertion. She denied any chest pain or cough. Pulse ox was 88% in the outpatient office and 82% on presentation here. It was thought she may have a pneumonia in her primary care physician's office. Patient has a remote history of breast cancer which she was treated for 15 years ago via mastectomy and radiation therapy. She has never had any PE or DVT. She has not had any fever or other respiratory symptoms. Vital signs on presentation showed a temperature of 96, heart rate 96, respiratory rate 22 the patient was shallow breathing, blood pressure was 150/101 with a repeat of 140/78 and pulse ox was 82% on room air. Pulse ox improved to 94% on 4 L nasal cannula. CBC was unremarkable. Coags were normal. Chemistry panel showed severe hypokalemia with a potassium of 2.6 but a normal magnesium at 2.0. Renal function appears to be at baseline. BNP was 251.2 and troponin was 1273. EKG shows a new left bundle branch block when compared to her previous EKG but that was performed in 2012. No [address]-T wave changes were concerning for acute ischemia patient was not having any chest pain. Since her outpatient chest x-ray was suggestive of pneumonia but patient did not have fever, chills, sputum production a CTA of her chest was performed and showed a moderate size pleural effusion with compressive atelectasis, pulmonary emboli in the right upper lobe and branches of the left upper lobe. She was given 1 dose of Lasix, potassium replacement and started on a heparin drip by the emergency department and request for admission was placed. Case was discussed by the ED physician with cardiology and initially was felt to be an NSTEMI however after her CTA was resulted it is likely that this is demand ischemia related to her PE. REPLACED BY [facility] Medical History Osteoporosis Smoker Breast cancer, right Anxiety disorder HTN (hypertension) Home Medications ?Medication ?Instructions ?Recorded ?Last Taken ?Type amlodipine 5 mg tablet 5 mg PO DAILY 09/28/18 06/12/24 History epinephrine 0.3 mg/0.3 mL 0.3 ml IM PRN 06/12/24 Unknown History injection, auto-injector hydrochlorothiazide 12.5 mg capsule 12.5 mg PO DAILY 06/12/24 06/12/24 History sertraline 50 mg tablet 50 mg PO DAILY 06/12/24 06/12/24 History Allergy/AdvReac Type Severity Reaction Status Date / Time desipramine Allergy Angioedema Verified 12/26/20 09:56 lisinopril Allergy Angioedema Verified 12/26/20 09:56 shrimp Allergy Upset Verified 12/26/20 09:56 Stomach Surgical History S/P hip hemiarthroplasty Social History (Updated 06/12/24 @ 22:[address] Sagrario Quintana DO) household members: family housing: house Smoking Status: Current some day smoker tobacco type: cigarettes alcohol intake: never substance use type: does not use ROS Constitutional Constitutional: Reports fatigue and weakness; Denies anorexia, change in weight, chills, fever(s), malaise, night sweats or other Eyes Eyes: Denies blurry vision, change in eye color, change in vision, discharge from eye(s), double vision, erythema, eye pain, loss of vision or other ENT HEENT: Denies abnormal hearing, dysphagia, ear pain, epistaxis, headache(s), hearing loss, nasal congestion, nasal discharge, post nasal drip, sinus pressure, sore throat or other Cardiovascular Cardiovascular: Reports dyspnea on exertion; Denies chest pain, claudication, edema, lightheadedness, orthopnea, palpitations, paroxysmal nocturnal dyspnea, rapid heart rate, syncope or other Respiratory/Chest Respiratory/Chest: Reports dyspnea, shortness of breath at rest and shortness of breath with exertion; Denies cough, excessive phlegm production, hemoptysis, productive cough, wheezing or other Gastrointestinal Gastrointestinal: Denies abdominal pain, coffee ground emesis, constipation, diarrhea, dyspepsia, hematemesis, hematochezia, loose stools, melena, nausea, vomiting or other Genitourinary Genitourinary: Reports urinary incontinence; Denies burning urination, difficulty urinating, dysuria, hematuria, nocturia, urinary frequency, urinary hesitancy, urinary urgency or other Musculoskeletal Musculoskeletal: Denies arthralgias, back pain, joint pain, joint stiffness, joint swelling, myalgias, neck pain or other Neurologic Neurologic: Denies abnormal gait, abnormal speech, confusion, disequilibrium, dizziness, focal weakness, headache(s), numbness, paresthesias, seizure-like activity, seizures, syncope, tingling, tremor(s) or other Psychiatric Psychiatric: Reports depression; Denies anxiety, homicidal ideation, suicidal ideation or other Endocrine Endocrinology: Denies change in body appearance, cold intolerance, excessive sweating, heat intolerance, polydipsia, polyuria or other Hematologic/Lymphatic Hematologic/Lymphatic: Denies anemia, easy bleeding, easy bruising, lymphadenopathy or other Allergic/Immunologic Allergic/Immunologic: Denies rhinitis, hives, eczemia, asthma or other Vital Signs Vital Signs Vital Signs: 06/12/24 13:21 06/12/24 13:31 06/12/24 13:34 Temperature 96.0 F L Temperature Source Temporal Pulse Rate 96 Respiratory Rate 22 H Respiratory Effort Short of Breath Short of Breath Respiratory Depth Shallow Respiratory Pattern Normal Normal Blood Pressure 158/101 H Blood Pressure Mean 120 Pulse Ox 82 Oxygen Delivery Method Room Air Nasal Cannula Oxygen Flow Rate (L/min) 4 06/12/24 14:12 06/12/24 14:22 06/12/24 15:00 Temperature Temperature Source Pulse Rate 78 71 Respiratory Rate 14 14 Respiratory Effort Respiratory Depth Respiratory Pattern Blood Pressure 140/78 H 142/74 H Blood Pressure Mean 98 96 Pulse Ox 94 95 Oxygen Delivery Method Room Air Nasal Cannula Nasal Cannula Oxygen Flow Rate (L/min) 06/12/24 15:46 06/12/24 16:00 Temperature Temperature Source Pulse Rate 80 84 Respiratory Rate 16 24 H Respiratory Effort Respiratory Depth Respiratory Pattern Blood Pressure 167/91 H 153/94 H Blood Pressure Mean 116 113 Pulse Ox 95 94 Oxygen Delivery Method Nasal Cannula Nasal Cannula Oxygen Flow Rate (L/min) 4 4 Weight Weight: 97.069 kg Body Mass Index (BMI) 34.5 Physical Exam Const alert, oriented x3, no apparent distress and well nourished Constitutional Narrative: Obese, elderly, white female, sitting up in bed, appears comfortable, no dyspnea with conversation on 4 L nasal cannula General Appearance: cooperative HEENT normocephalic, head/scalp atraumatic and moist oral mucous membranes HEENT Narrative: Moderate hearing loss, Mallampati 2, no thrush Eyes EOMs intact bilaterally and conjunctivae normal Eyes Narrative: No scleral icterus Neck no lymphadenopathy and supple Neck Narrative: Trachea midline, no thyroid enlargement Resp no retractions, no use of accessory muscles and clear to auscultation bilaterally Resp Narrative: Diminished in the right base but otherwise clear, mild tachypnea Auscultation: Negative for rales, rhonchi or wheezes Cardio regular rate, regular rhythm, S1 normal heart sound, S2 normal heart sound, no murmurs, no rub, no gallops and no clicks GI normal to inspection, nondistended, normoactive bowel sounds, soft to palpation and non-tender Extremity no clubbing, cyanosis or edema Extremity Narrative: Pedal pulses and radial pulses are 2+ Skin skin turgor normal, no jaundice, no petechiae and no mottling Skin Narrative: Large skin tag on the right upper back, multiple areas of seborrheic keratoses, skin changes consistent with previous sun exposure Neuro oriented x3, moves all extremities and no focal motor deficits Speech: speech normal Psych affect normal Psych Narrative: Very pleasant, interacts appropriately Results Lab / Micro Data 06/12/24 13:35 06/12/24 13:35 Labs: Laboratory Results - last 24 hr 06/12/24 13:35: WBC 8.5, RBC 4.86, Hgb 14.0, Hct 43.8, MCV 90.1, MCH 28.8, MCHC 32.0, RDW Std Deviation 47.5 H, RDW Coeff of Evangelista 14.5, Plt Count 307, MPV 11.1, Immature Gran % (Auto) 0.700, Neut % (Auto) 84.6 H, Lymph % (Auto) 6.5 L, [place] % (Auto) 7.4, Eos % (Auto) 0.2, Baso % (Auto) 0.6, Absolute Neuts (auto) 7.2, Absolute Lymphs (auto) 0.55 L, Nucleated RBC % 0, PT 14.3, INR 1.1, APTT 26.4, Sodium 137, Potassium 2.6 L*, Chloride 102, Carbon Dioxide 28.0, Anion Gap 7, BUN 29 H, Creatinine 0.95, Estim Creat Clear Calc 49.93, Est GFR (MDRD) Af Amer 72, Est GFR (MDRD) Non-Af 59 L, BUN/Creatinine Ratio 30.6 H, Glucose 130 H, Calcium 9.4, Total Bilirubin 0.70, AST 27, ALT 24, Alkaline Phosphatase 129 H, Troponin I High Sens 1273 H*, B-Natriuretic Peptide 252.1 H, Total Protein 7.7, Albumin 3.1 L, Globulin 4.6 H, Albumin/Globulin Ratio 0.7 L Micro: Microbiology 06/12/24 15:10 Mucosa - Nose Coronavirus COVID-19 PCR - Final Imaging Radiology Impression Chest CTA 06/12/24 14:11 IMPRESSION: Moderate-sized right pleural effusion with volume loss in the right middle lobe and right lower lobes with evidence of pulmonary emboli in the right upper lobe pulmonary artery and to lesser extent branches of the left upper lobe. Electronically Signed: Adrian Valadez MD at 15:38 EST , Assessment & Plan Assessment/Plan (1) Hypokalemia: (2) Complete left bundle branch block: (3) Pleural effusion: (4) Hypoxia: (5) Elevated troponin: (6) Pulmonary emboli: PLAN: Plan Acute hypoxic respiratory failure secondary to bilateral PE/right pleural effusion -Patient not oxygen dependent at baseline currently requiring 4 L nasal cannula keep sats greater then or equal to 89% -82% on room air at presentation -Wean oxygen as able -Family reports she has been fairly inactive -PE likely induced by decreased activity -Heparin drip initiated by emergency department and will continue until thoracentesis can be completed -Would recommend initiation of Eliquis 10 mg p.o. twice daily x 7 days then 5 mg p.o. twice daily indefinitely -Biomarkers are elevated with troponin and BNP elevation however emboli are more peripheral and not amenable to extraction -Given there is no need for vascular surgery involvement -Check echocardiogram to assess RV -Thoracentesis ordered with fluid studies and LDH -Cultures and cytology assessment as well -BNP was elevated likely related to her PE will give diuretics 40 mg IV daily and reassess -Hold home HCTZ -May need oxygen at discharge and patient is aware -Check ambulatory pulse ox prior to discharge Troponin elevation -Highly suspect that is elevated due to demand from PE -Check echocardiogram to assess LV as well as RV -Heparin drip for the above -Case was discussed by the emergency department with cardiology and I did discuss the case with Dr. Claros -He indicated he would see the patient in consultation -I doubt based on my conversation with her she would want much intervention but is familiar with him and has seen him previously LBBB -No however her last EKG was done here in 2013 -Cycle cardiac enzymes and check echocardiogram -Cardiology to evaluate Right pleural effusion -Thoracentesis ordered as noted above -Heparin drip until can be performed and then transition to oral anticoagulation for PEs Hypokalemia -Replaced with p.o. potassium in the emergency department 40 mEq -Will give 2 more doses with severe hypokalemia present -Magnesium was normal at 2.0 -Repeat lab in a.m. History of breast cancer -Remote with mastectomy 15 years ago -Status post radiation therapy Essential hypertension -Hold home HCTZ -Continue home amlodipine History of angioedema -Occurred with lisinopril and desipramine -Monitor clinically with any medication changes due to history Depression -Continue home sertraline Obesity -BMI 33.6 -Recommend weight loss DVT prophylaxis On heparin drip as noted above CODE STATUS -DNR CCA no intubation Charges/Coding Visit Charges Inpatient E&M: 75794 Init Hosp L3
[2024-06-12] MEDS: Furosemide 40 MG/4 ML Vial IV (16:52)
[2024-06-12 16:53] LABS: International Normalized Ratio 1.1; Prothrombin Time (Protime)PT. 14.4 SECONDS (11.7-14.9)
[2024-06-12 16:54] LABS: Partial Thromboplast Time 24.8 Seconds (24.1-36.2)
[2024-06-12] MEDS: Heparin Injection (Vial) 5,000 UNIT/ML VIAL 4000 UNIT IV (16:57)
[2024-06-12] MEDS: HEPARIN/D5w 25,000 UNITS 25,000 UNITS/250 ML IV.SOLN. 10 UNITS CONT INF (17:00)
[2024-06-12 17:48] LABS: LDH 295 U/L (84-246)
[2024-06-12 18:09] LABS: Glucose, Body Fluid 98 mg/dL (40-70); LDH,Body Fluid 299 Units/L (Not Establ.); Protein, Body Fluid 7.1 g/dL (Not Establ.)
[2024-06-12 23:52] LABS: Partial Thromboplast Time 25.6 Seconds (24.1-36.2)
[2024-06-13] VITALS (9 sets, daily range): BP systolic 113–155; BP diastolic 77–113; PULSE 80–95; RESP 16–20; TEMP 35.9–36.8; O2SAT 92–96; BMI 32.8
--- NOTE | 2024-06-13 | IMM_PTH ---
PATIENT: RADHA WATTS LOC: [facility] U#:[id number] AGE/SX: 88/F ROOM: [facility] RE06/12/[address]: Dr. Kit Loya MD : 1935 BED: 1 DIS: 06/15/2024 SPEC #: [id number] RECD: 06/15/24 11:22 STATUS: SOURoberto REQ #: [id number] APURVA: 06/13/24 00:[address]: Kit Loya DEPT: IMMUNOHISTOCHEMISTRY RECD BY: Jesus Bone ENTERED: 06/15/24 11:23 SP TYPE: IMMUNO OTHR DR: MD Dr. Sagrario Whittaker DO Tissues: THORACIC FLUID Procedures: RCC (add) Subhash Ret (add) CK20 (add) CK5-6 (add) CK7 (add) CK8 (add) E-CAD (add) HEP PAR (add) HER2 MELIA (add) MAMM (add) NV (add) TTF1 (add) Vimentin (add) Pankeratin (add) P40 (add) CD68 (ADD) MOC-31 (add) ER (initial) PHYSICIAN & INSTITUTION [place] [id number] SPECIMEN INFORMATION: Tissue Source: Thoracentesis fluid Clinical Info: Right chest Specimen Number: [id number] CPT code: 68462,55672l02 METHODOLOGY: Deparaffinized sections of prefer/formalin-fixed tissue or PAP/DQ stained slides are incubated with monoclonal/polyclonal antibodies/oligonucleotide probes. Localization is made via biotin free immunoperoxidase method. Appropriate controls are performed and reacted as expected. Results on target cell population are indicated in the following table: RESULTS: ANTIBODY / CLONE RESULT ER (6F11) negative NV (1E2) negative Her-2neu (CB11) negative (1+) E-Cad (ECH-6) positive Mammaglobin (31A5) negative GATA3 (L50-823) negative MOC-31 (4561) positive Vimentin (V9) negative CD68 (KP-1) negative TTF-1 (8G7G3/1) positive, focal HepPar (OCh1E5) positive (aberrant staining) RCC (PN-15) negative Napsin A (Rabbit Polyclonal) positive, focal CALRET (polyclonal) negative CK5-6 (D5 & 1684) positive, focal P40 (BC28) negative AE1-3 (AE1/AE3/PCK26) positive CK8 (83wxzjY97) positive CK7 (OV-TL12/30) positive CK20 (KS20.8) negative These tests were developed and their performance characteristics determined by [facility]. They may not have been cleared or approved by the U.S. Food and Drug Administration. The FDA has determined that such clearance or approval is not necessary. The above immunohistochemical/dualISH markers are ordered and reviewed by the Pathologist. INTERPRETATION: Thoracentesis fluid for cytology (cytospins and cellblock): Malignant cells present derived from non-small cell carcinoma. See comment. COMMENT: IHC profile favors adenocarcinoma, lung primary. SJ.mr 06/16/2024
[2024-06-13 07:06] LABS: Absolute Lymphocyte Count 0.43 X10^3/uL (0.83-4.51); Absolute Neutrophil Count 5.9 X10^3/uL (2.0-7.7); Basophil# 0.04 X10^3/uL; Basophil% 0.6 % (0-1); Eosinophil# 0.06 X10^3/uL; Eosinophils% 0.8 % (0-5); Hematocrit 40.2 % (37-47); Hemoglobin 12.9 g/dL (12.0-15.0); Lymphocyte # 0.43 X10^3/ul (0.83-4.51); Mean Corp Hgb Conc 32.1 g/dL (32-36); Mean Corpuscular Volume 90.3 fL (81-99); Mean Platelet Vol. 10.8 fl (6.2-12.0); Monocyte% 9.7 % (0-10); NRBC Flagged by Analyzer 0 % (0-5); Neutrophil % 81.9 % (47-70); POSITIVE DIFFERENTIAL YES; Platelet Count 268 K/mm3 (150-450); RBC Distribution Width CV 14.4 % (11.6-14.6); Red Blood Count 4.45 M/mm3 (4.2-5.4); White Blood Count 7.2 K/mm3 (4.4-11.0)
[2024-06-13 07:38] LABS: ALB/GLOB Ratio 0.7 RATIO (0.9-2.4); AST(SGOT) 25 U/L (15-37); Alanine Aminotransfer ALT/SGPT 17 U/L (13-56); Albumin, Serum 2.8 g/dL (3.2-5.0); Alkaline Phosphatase 114 U/L (45-117); Anion Gap 7 (5-15); BUN 26 mg/dL (7-18); BUN/Creat Ratio 33.3 RATIO (10-20); Calcium,Total 8.9 mg/dL (8.5-10.1); Chloride 106 mmol/L (98-107); Creatinine, Serum 0.78 mg/dL (0.55-1.02); EST Glomerular Filtration Rate 74 mL/min (>60); Est Glom Filt Rate - Afr Amer 90 mL/min (>60); Estimated Creatinine Clearance 57.81 ml/min; Glucose 101 mg/dL (74-106); Magnesium 2.1 mg/dL (1.6-2.6); Phosphorus 3.4 mg/dL (2.5-4.9); Potassium 3.5 mmol/L (3.5-5.1); Protein, Total 6.8 g/dL (6.4-8.2); Sodium Level 140 mmol/L (136-145)
--- NOTE | 2024-06-13 07:48 | PCM.PN.HOSP ---
Reason for Visit Reason for Visit: Diagnoses Hypokalemia (06/12/24) Other pulmonary embolism without acute cor pulmonale (06/12/24) Left bundle-branch block, unspecified (06/12/24) Pleural effusion, not elsewhere classified (06/12/24) Hypoxemia (06/12/24) Other specified abnormal findings of blood chemistry (06/12/24) Objective Data Objective Data Vital Signs: Vital Signs Temp Pulse Resp BP Pulse Ox O2 Del Method O2 Flow Rate 98.1 F 92 16 146/84 H 94 Nasal Cannula 4 06/13/24 03:00 06/13/24 03:00 06/13/24 03:00 06/13/24 03:00 06/13/24 03:00 06/13/24 03:00 06/13/24 03:00 Oxygen Flow Rate (L/min) 4 Oxygen Delivery Method Nasal Cannula Weight: 203 lb 11.314 oz Body Mass Index (BMI) 32.8 Intake & Output: Intake and Output for Last 24 Hours 06/11/24 06/12/24 06/13/24 23:59 23:59 23:59 Intake Total 318.83 / 318.83 Balance 318.83 / 318.83 Lab / Micro Data 06/13/24 06:30 06/13/24 06:30 Labs: Laboratory Results - last 24 hr 06/12/24 13:23: PT 14.4, INR 1.1, APTT 24.8 06/12/24 13:35: WBC 8.5, RBC 4.86, Hgb 14.0, Hct 43.8, MCV 90.1, MCH 28.8, MCHC 32.0, RDW Std Deviation 47.5 H, RDW Coeff of Evangelista 14.5, Plt Count 307, MPV 11.1, Immature Gran % (Auto) 0.700, Neut % (Auto) 84.6 H, Lymph % (Auto) 6.5 L, Island % (Auto) 7.4, Eos % (Auto) 0.2, Baso % (Auto) 0.6, Absolute Neuts (auto) 7.2, Absolute Lymphs (auto) 0.55 L, Nucleated RBC % 0, PT 14.3, INR 1.1, APTT 26.4, Sodium 137, Potassium 2.6 L*, Chloride 102, Carbon Dioxide 28.0, Anion Gap 7, BUN 29 H, Creatinine 0.95, Estim Creat Clear Calc 49.93, Est GFR (MDRD) Af Amer 72, Est GFR (MDRD) Non-Af 59 L, BUN/Creatinine Ratio 30.6 H, Glucose 130 H, Calcium 9.4, Magnesium 2.0, Total Bilirubin 0.70, AST 27, ALT 24, Alkaline Phosphatase 129 H, Troponin I High Sens 1273 H*, B-Natriuretic Peptide 252.1 H, Total Protein 7.7, Albumin 3.1 L, Globulin 4.6 H, Albumin/Globulin Ratio 0.7 L 06/12/24 16:50: Lactate Dehydrogenase 295 H, Fluid Glucose 98 H, Fluid Total Protein 7.1, Fluid LDH 299 06/12/24 23:30: APTT 25.6 06/13/24 06:30: WBC 7.2, RBC 4.45, Hgb 12.9, Hct 40.2, MCV 90.3, MCH 29.0, MCHC 32.1, RDW Std Deviation 48.0 H, RDW Coeff of Evangelista 14.4, Plt Count 268, MPV 10.8, Immature Gran % (Auto) 1.000 H, Neut % (Auto) 81.9 H, Lymph % (Auto) 6.0 L, Island % (Auto) 9.7, Eos % (Auto) 0.8, Baso % (Auto) 0.6, Absolute Neuts (auto) 5.9, Absolute Lymphs (auto) 0.43 L, Nucleated RBC % 0, Sodium 140, Potassium 3.5, Chloride 106, Carbon Dioxide 27.0, Anion Gap 7, BUN 26 H, Creatinine 0.78, Estim Creat Clear Calc 57.81, Est GFR (MDRD) Af Amer 90, Est GFR (MDRD) Non-Af 74, BUN/Creatinine Ratio 33.3 H, Glucose 101, Calcium 8.9, Phosphorus 3.4, Magnesium 2.1, Total Bilirubin 0.80, AST 25, ALT 17, Alkaline Phosphatase 114, Total Protein 6.8, Albumin 2.8 L, Globulin 4.0, Albumin/Globulin Ratio 0.7 L Micro: Microbiology 06/12/24 15:10 Mucosa - Nose Coronavirus COVID-19 PCR - Final Radiography Diagnostic Testing: Radiology Impression Chest CTA 06/12/24 14:11 IMPRESSION: Moderate-sized right pleural effusion with volume loss in the right middle lobe and right lower lobes with evidence of pulmonary emboli in the right upper lobe pulmonary artery and to lesser extent branches of the left upper lobe. Electronically Signed: Adrian Valadez MD at 15:38 EST , Physical Exam Narrative seen and examined. Patient undergoing echo. Denies chest pain or shortness of breath. Moderate right pleural effusion and lobar PE Physical exam: General: Alert, Oriented x3, Cooperative BMI 32.9 kg per square HEENT: Atraumatic, PERRLA, EOMI, Normocephalic Oral: No Gingival or Mucosal Lesions/ Ulcerations Neck: Supple, No JVD, Negative Carotid Bruits Chest wall/Lungs: Air entry diminished in bilateral lung bases. No crepitation/rhonchi Cardiovascular: Regular rate, Regular Rhythm, Normal S1, Normal S2, systolic murmur Abdomen: Bowel Sounds Present, Soft, Non Tender, Non-Distended : No dysuria. No renal angle tenderness. No suprapubic tenderness. Extremities: No edema, Capillary Refill Less than 3 Seconds Skin: No rashes, No breakdown Musculoskeletal: No Tenderness to Palpation of Joints or Extremities. ROM wrist Neurological: Cranial nerves II-XII grossly intact, DTR 2+/4. No acute focal neurological deficit. Psych/Mental Status: Normal Affect, Appropriate. Assessment & Plan Assessment/Plan (1) Hypokalemia: (2) Complete left bundle branch block: (3) Pleural effusion: (4) Hypoxia: (5) Elevated troponin: (6) Pulmonary emboli: PLAN: Plan 38-year-old female was sent from PCP office for hypoxia. Complaint of 1 month history of fatigue, weakness and dyspnea. No cough. Pulse ox 88% in the office. 1. Acute hypoxic respiratory failure secondary to bilateral lobar pulmonary embolism and right-sided pleural effusion: CTA individually reviewed and shows right moderate pleural effusion, PE in RUL and partial KODAK. Patient currently on IV heparin drip as a scheduled for right ultrasound-guided thoracocentesis. Mild hypoxia Troponins and BNP elevated probably due to history of heart failure and PE 2. High troponin possible due to non-STEMI probably exacerbated by CHF and PE: Troponin is high 1000 and gradually came down about 800. 2D echo shows EF is 20% with severely hypokinetic apex and anteroseptal region. Discussed with the laborer tin can Dr. Jerod Claros. Patient does not have chest pain or shortness of breath. Echo shows EF 20%, moderate concentric LVH, severe systolic segmental systolic dysfunction. He had will treat medically with beta-solange. Patient has allergy with lisinopril angioedema. Clinical suspicion of possible Takotsubo cardiomyopathy based on the segmental wall motion abnormality but laborer tin can recommended medical management 3. Right moderate pleural effusion: Ultrasound-guided thoracocentesis is ordered. Hypokalemia: K3.5. Low normal. Oral potassium ordered - History of breast cancer -Remote with mastectomy 15 years ago -Status post radiation therapy Essential hypertension -Hold home HCTZ -Continue home amlodipine History of angioedema -Occurred with lisinopril and desipramine Probably not good for losartan Depression -Continue home sertraline Obesity -BMI 33.6 -Recommend weight loss DVT prophylaxis On heparin drip as noted above CODE STATUS -DNR CCA no intubation Charges/Coding Addendum Addendum: Total time of the visit including total time spent in counseling or coordination of care, (more than 50% of the total time, spent in obtaining medical information from nurses and other ancillary care providers ,explaining to the patient about labs, imaging, diagnosis and management of active complex medical conditions), discussion with the laborer tin can, management multiple active medical problems including pleural effusion, pulmonary embolism and non-ST, review of labs and imaging is 35 minutes. Visit Charges Inpatient E&M: [id number] [facility] L3
[2024-06-13 07:53] LABS: Partial Thromboplast Time 45.2 Seconds (24.1-36.2)
[2024-06-13 08:02] LABS: Phosphorus 3.4 mg/dL (2.5-4.9)
[2024-06-13 08:34] LABS: Troponin-I HS 1013 pg/mL (3.0-54.0)
[2024-06-13 09:02] LABS: Troponin-I HS 1040 pg/mL (3.0-54.0)
[2024-06-13] MEDS: Furosemide 40 MG/4 ML Vial IV (10:20)
[2024-06-13] MEDS: Potassium Chloride Oral Tablet 20 MEQ 40 MEQ PO (10:21)
--- NOTE | 2024-06-13 12:10 | CASEMGMT ---
TONIA LERMA Assessment: Face to Face with pt for initial transition planning/care coordination assessment. TONIA LERMA introduced self and role at [facility], pt voices understanding and consents to assessment. Pt is A&O x4 and answers all questions appropriately at this time. Pt lying in bed in no distress. Care providers, pharmacy, and demographics verified/updated. Strata: 2 Admitting Dx: Acute Hypoxic Respiratory Failure/ Pulmonary Emboli PCP: Chela Specialists: Denies Preferred Pharmacy: [facility] Insurance: MCR, [employer] Prescription Benefit: yes LNOK: , Steven; Daughter, Arabella Living Arrangements: Pt lives with in a 1 story home with 2 steps and hand rails to enter. ADLs: Pt states I with ADLs, starting to need some assistance with IADLs. Had an initial consultation to set up caregivers through [facility] [employer]. Pt daughter is working on getting a start date set. Transportation: Pt drives self and denies concerns with transportation. DME: shower bench, cane, pulse ox HHC/SNF: Denies Hx of. starting with [facility] [employer] for private duty caregivers Pt states no concerns with going home at time of dc. Pt daughter is flying home from [place] and plans to stay a week or 2 to help pt and her . TONIA LERMA discussed O2 needs and provided a verbal list of local oxygen providers, if Pt requires O2 at time of DC her preference is [facility]. Pt states no further concerns/needs. CM to follow. Advised pt to ask CM if any further question/concerns/needs arise, voices understanding. Pt Goal: Home Plan: Home with family support and caregivers, follow for O2 needs. Follow therapy recommendations. Katie RANDALL CM
[2024-06-13 13:45] LABS: Troponin-I HS 818 pg/mL (3.0-54.0)
--- NOTE | 2024-06-13 13:45 | FLU_PTH ---
PATIENT: RADHA WATTS LOC: [facility] U#:[id number] AGE/SX: 88/F ROOM: [facility] RE06/12/[address]: Dr. Kit Loya MD : 1935 BED: 1 DIS: 06/15/2024 SPEC #: [id number] RECD: 06/14/24 09:50 STATUS: MUMTAZ REQ #: [id number] APURVA: 06/13/24 13:[address]: Kit Loya DEPT: CYTOLOGY RECD BY: Yajaira Coello ENTERED: 06/14/24 09:51 SP TYPE: Fluid OTHR DR: MD Dr. Sagrario Whittaker, Tissues: THORACIC FLUID Procedures: Special Stain Group II Surgery Specimen Level IV Cytospin Fluid HEADER OPERATION: Thoracentesis fluid PRE-OP DIAGNOSIS: Right chest TISSUE SUBMITTED: Thoracentesis fluid for cytology DIAGNOSIS CYTOLOGY Thoracentesis fluid for cytology (cytospins and cellblock): Malignant cells present derived from metastatic non-small carcinoma. See note and comment. NOTE: Immunohistochemistry RF25-(38) supports the above diagnosis and favors adenocarcinoma, lung primary. SJ.mr 06/15/2024 COMMENT Correlation with clinical, radiologic findings and appropriate follow up are necessary. 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 CYTOLOGY STUDY Slides are reviewed. CYTOLOGY GROSS Received is 100 ml of yellow cloudy fluid labeled with the patient's name and and designated per the requisition as Thoracentesis fluid. Submitted for cytology preparation including cell block. Mr 06/14/2024 TC:0 CPT: 72881,51233
--- NOTE | 2024-06-13 14:00 | RAD_ITS ---
STUDY: X-RAY CHEST REASON FOR EXAM: Female, 88 years old. Post thoracentesis TECHNIQUE: AP inspiration and expiration views. COMPARISON: Comparison is made with prior CT scan of the thorax dated June 12, 2022. FINDINGS: EKG electrodes are seen. Surgical clips are seen in the right axillary region Status post right thoracentesis. No evidence of pneumothorax. Residual pleural parenchymal changes at the right lung base. RAD/Chest Insp/Exp 2 View IMPRESSION: Status post right thoracentesis. No evidence of pneumothorax. Residual pleural parenchymal changes at the right lung base. Electronically Signed: Adrian Valadez MD at 14:16 EST ,
[2024-06-13 14:44] LABS: Body Fluid Mononuclear WBC # 1.285 10^3/uL; Body Fluid Mononuclear WBC % 60.3 %; Body Fluid Polynuclear WBC # 0.846 10^3/uL; Body Fluid Polynuclear WBC % 39.7 %; Body Fluid Total Cells Counted 2.192 10^3/ul; White Blood Count/Body Fluid 2.131 10^3/uL
[2024-06-13] MEDS: HEPARIN/D5w 25,000 UNITS 25,000 UNITS/250 ML IV.SOLN. 13 UNITS CONT INF (16:14)
[2024-06-13 16:16] LABS: Lymphocytes 29 %; Macrophages 3 %; Mesothelial Cells 18 %; Neutrophil (Segs) 50 %
[2024-06-13 16:17] LABS: Appearance/Body Fluid SL CLDY; Auto B Fluid Analyzer BKGD Ct COUNTS W/IN LIMITS (W/IN LIMITS); Color/Body Fluid YELLOW; Red Cell Count/Body Fluid 505 /mm3; Source- Body Fluid THORACENTESIS
[2024-06-13 16:22] LABS: Body Fluid QC Type(s) BF3Q
--- NOTE | 2024-06-13 16:40 | US_ITS ---
PROCEDURE: ULTRASOUND GUIDED THORACENTESIS. DATE: June 13, 2024.. INDICATION: Female, 88 years old. Right pleural effusion PHYSICIAN: Adrian Valadez M.D. PROCEDURE: The risks, benefits, and alternatives to the procedure were explained to the patient. The specific risks of bleeding, infection, and pneumothorax requiring chest tube insertion were discussed and accepted. Written informed consent was obtained. Ultrasonographic evaluation of the right lower pleural space was carried out. An adequate pocket was identified. The patient was placed in the sitting, upright position. The overlying skin was prepped and draped in sterile fashion. 1% lidocaine was administered subcutaneously for local anesthesia. Under ultrasound guidance, a 5 Rw[place]an thoracentesis needle/catheter system was advanced into the right posterior lower pleural fluid collection. Approximately 1030 mL of jacinto-colored fluid was drained. The catheter was removed, and a sterile dressing was applied. A specimen was collected and sent to the laboratory for analysis, as requested by the referring clinician. The patient tolerated the procedure well. A chest x-ray was ordered. US/Thoracentesis W US IMPRESSION: Ultrasound-guided right thoracentesis. Electronically Signed: Adrian Valadez MD at 14:27 [facility] ,
[2024-06-13] MEDS: Carvedilol 6.25 MG Tablet PO ×2 (16:44→21:04)
[2024-06-13] MEDS: amLODIPine 5 MG Tablet PO (16:44)
--- NOTE | 2024-06-13 17:30 | NURSING ---
lab did not draw ptt at 1500 d/t pleb unable to get. pleb then had med emergency but then lab did not send another pleb to draw and when nurse called down at 1700 and still had not sent anyone up to retry to draw timed ptt.
[2024-06-13 18:02] LABS: Partial Thromboplast Time 58.2 Seconds (24.1-36.2)
[2024-06-13 23:18] LABS: Partial Thromboplast Time 70.7 Seconds (24.1-36.2)
[2024-06-14] VITALS (12 sets, daily range): BP systolic 114–120; BP diastolic 60–63; PULSE 67–72; RESP 18–20; TEMP 36.4–36.9; O2SAT 84–98; BMI 32.9
[2024-06-14 05:27] LABS: Absolute Lymphocyte Count 0.45 X10^3/uL (0.83-4.51); Absolute Neutrophil Count 5.5 X10^3/uL (2.0-7.7); Basophil# 0.06 X10^3/uL; Basophil% 0.9 % (0-1); Eosinophil# 0.05 X10^3/uL; Eosinophils% 0.7 % (0-5); Hematocrit 39.9 % (37-47); Hemoglobin 12.7 g/dL (12.0-15.0); Lymphocyte # 0.45 X10^3/ul (0.83-4.51); Lymphocyte % 6.6 % (19-41); Mean Corp Hgb Conc 31.8 g/dL (32-36); Mean Corpuscular Hgb 28.7 pg (27.0-32.0); Mean Corpuscular Volume 90.3 fL (81-99); Mean Platelet Vol. 10.8 fl (6.2-12.0); Monocyte# 0.59 X10^3/uL; Monocyte% 8.7 % (0-10); NRBC Flagged by Analyzer 0 % (0-5); Neutrophil # 5.54 X10^3/uL (2.7-7.7); Neutrophil % 81.9 % (47-70); POSITIVE DIFFERENTIAL YES; Platelet Count 276 K/mm3 (150-450); RBC Distribution Width CV 14.5 % (11.6-14.6); RBC Distribution Width SD 47.8 fl (35.1-43.9); Red Blood Count 4.42 M/mm3 (4.2-5.4); White Blood Count 6.8 K/mm3 (4.4-11.0)
[2024-06-14 05:43] LABS: Partial Thromboplast Time 71.7 Seconds (24.1-36.2)
[2024-06-14 05:54] LABS: Anion Gap 4 (5-15); BUN 25 mg/dL (7-18); BUN/Creat Ratio 31.2 RATIO (10-20); Chloride 104 mmol/L (98-107); Cholesterol 144 mg/dL (200); EST Glomerular Filtration Rate 72 mL/min (>60); Est Glom Filt Rate - Afr Amer 87 mL/min (>60); Estimated Creatinine Clearance 57.87 ml/min; Glucose 116 mg/dL (74-106); High Density Lipoprotein 45 mg/dL; Potassium 3.3 mmol/L (3.5-5.1); Sodium Level 137 mmol/L (136-145); Triglycerides 83 mg/dL; Very Low Density Lipoprotein 17 mg/dL (5-40)
[2024-06-14 10:02] LABS: Phosphorus 3.5 mg/dL (2.5-4.9)
[2024-06-14] MEDS: amLODIPine 5 MG Tablet PO (11:28)
[2024-06-14] MEDS: Furosemide 40 MG/4 ML Vial IV (11:28)
[2024-06-14] MEDS: 0.9% Saline Lock 10 ML Syringe IV (11:29)
[2024-06-14] MEDS: Carvedilol 6.25 MG Tablet PO ×2 (11:29→21:04)
[2024-06-14] MEDS: Sertraline 50 MG Tablet PO (11:29)
[2024-06-14] MEDS: Potassium Chloride 10mEq/100mL 10 MEQ/100 ML IV.SOLN. 100 MEQ IV BOLUS (11:34)
[2024-06-14] MEDS: Potassium Chloride Oral Tablet 20 MEQ 40 MEQ PO ×2 (12:24→16:05)
[2024-06-14 13:00] LABS: Partial Thromboplast Time 51.5 Seconds (24.1-36.2)
[2024-06-14] MEDS: HEPARIN/D5w 25,000 UNITS 25,000 UNITS/250 ML IV.SOLN. 12 UNITS CONT INF (13:05)
--- NOTE | 2024-06-14 14:27 | PN.HOSP_ITS ---
Reason for Visit Reason for Visit: Diagnoses Hypokalemia (06/12/24) Other pulmonary embolism without acute cor pulmonale (06/12/24) Left bundle-branch block, unspecified (06/12/24) Pleural effusion, not elsewhere classified (06/12/24) Hypoxemia (06/12/24) Other specified abnormal findings of blood chemistry (06/12/24) Objective Data Objective Data Vital Signs: Vital Signs Temp Pulse Resp BP Pulse Ox O2 Del Method O2 Flow Rate 97.6 F L 72 18 114/63 84 Nasal Cannula 2 06/14/24 11:05 06/14/24 11:05 06/14/24 11:05 06/14/24 11:05 06/14/24 12:41 06/14/24 11:31 06/14/24 13:46 Oxygen Flow Rate (L/min) 2 Oxygen Delivery Method Nasal Cannula Weight: 204 lb 2.369 oz Body Mass Index (BMI) 32.9 Intake & Output: Intake and Output for Last 24 Hours 06/12/24 06/13/24 06/14/24 23:59 23:59 23:59 Intake Total 646.41 / 646.41 180.26 / 180.26 Output Total 2060 / 2060 300 / 300 Balance -1413.59 / -1413.59 -119.74 / -119.74 Lab / Micro Data 06/14/24 05:18 06/14/24 05:18 Labs: Laboratory Results - last 24 hr 06/13/24 13:45: Fluid Source THORACENTESIS, Fluid Color YELLOW, Fluid Appearance SL CLDY, Fluid WBC 2.131, Fluid RBC 505, Fluid Tot Cell Count 2.192 H, Fld Polynuclear WBCs # 0.846, Fld Polynuclear WBCs % 39.7, Fluid Mononuclear WBCs 1.285, Fld Mononuclear WBCs % 60.3, Fluid Neutrophils 50, Fluid Lymphocytes 29, Fluid Macrophages 3, Fld Mesothelial Cells 18, Fl Pathologist Comment May follow, Fluid Comment 2 SEE COMMENT 06/13/24 17:35: APTT 58.2 H 06/13/24 22:43: APTT 70.7 H 06/14/24 05:18: WBC 6.8, RBC 4.42, Hgb 12.7, Hct 39.9, MCV 90.3, MCH 28.7, MCHC 31.8 L, RDW Std Deviation 47.8 H, RDW Coeff of Evangelista 14.5, Plt Count 276, MPV 10.8, Immature Gran % (Auto) 1.200 H, Neut % (Auto) 81.9 H, Lymph % (Auto) 6.6 L , Hopkins % (Auto) 8.7, Eos % (Auto) 0.7, Baso % (Auto) 0.9, Absolute Neuts (auto) 5.5, Absolute Lymphs (auto) 0.45 L, Nucleated RBC % 0, APTT 71.7 H, Sodium 137, Potassium 3.3 L, Chloride 104, Carbon Dioxide 29.0, Anion Gap 4 L, BUN 25 H, Creatinine 0.80, Estim Creat Clear Calc 57.87, Est GFR (MDRD) Af Amer 87, Est GFR (MDRD) Non-Af 72, BUN/Creatinine Ratio 31.2 H, Glucose 116 H, Calcium 9.0, Phosphorus 3.5, Magnesium 2.0, Triglycerides 83, Cholesterol 144, LDL Cholesterol 82, VLDL Cholesterol 17, HDL Cholesterol 45 06/14/24 12:35: APTT 51.5 H Micro: Microbiology 06/13/24 13:45 Fluid - Pleural (Lung) Gram Stain - Final 06/13/24 13:45 Fluid - Pleural (Lung) Body Fluid Culture - Preliminary No growth-Final to follow 06/12/24 15:10 Mucosa - Nose Coronavirus COVID-19 PCR - Final Radiography Diagnostic Testing: Radiology Impression Echocardiogram 06/12/24 16:40 Interpretation Summary Normal LV size. The left ventricular ejection fraction is 20 %. Moderate concentric left ventricular hypertrophy. Septal motion consistent with bundle branch block. Severe segmental systolic dysfunction (see wall motion). Contrast injection was performed. Compared to previous study, the left ventricular systolic function has worsened.. Ordering Physician: Sagrario Quintana Performed By: Eri Marmolejo RDCS Thoracentesis Ultrasound 06/13/24 16:40 IMPRESSION: Ultrasound-guided right thoracentesis. Electronically Signed: Adrian Valadez MD at 14:27 EST , Physical Exam Narrative seen and examined. Patient had about 15 beats of NSVT probably due to very low EF/cardiomyopathy. Mild hypokalemia K3.3. Serum magnesium and phosphorus level normal. Patient did not had symptoms related to NSVT. Had thoracocentesis yesterday. Shortness of breath improved. Denies chest pain or shortness of breath. Physical exam: General: Alert, Oriented x3, Cooperative BMI 32.9 kg per square HEENT: Atraumatic, PERRLA, EOMI, Normocephalic Oral: No Gingival or Mucosal Lesions/ Ulcerations Neck: Supple, No JVD, Negative Carotid Bruits Chest wall/Lungs: Air entry diminished in bilateral lung bases. No crepitation/rhonchi Cardiovascular: Regular rate, Regular Rhythm, Normal S1, Normal S2, systolic murmur Abdomen: Bowel Sounds Present, Soft, Non Tender, Non-Distended : No dysuria. No renal angle tenderness. No suprapubic tenderness. Extremities: No edema, Capillary Refill Less than 3 Seconds Skin: No rashes, No breakdown Musculoskeletal: No Tenderness to Palpation of Joints or Extremities. ROM wrist Neurological: Cranial nerves II-XII grossly intact, DTR 2+/4. No acute focal neurological deficit. Psych/Mental Status: Normal Affect, Appropriate. Assessment & Plan Assessment/Plan (1) Hypokalemia: (2) Complete left bundle branch block: (3) Pleural effusion: (4) Hypoxia: (5) Elevated troponin: (6) Pulmonary emboli: PLAN: Plan 38-year-old female was sent from PCP office for hypoxia. Complaint of 1 month history of fatigue, weakness and dyspnea. No cough. Pulse ox 88% in the office. 1. Acute hypoxic respiratory failure secondary to bilateral lobar pulmonary embolism and right-sided pleural effusion: CTA individually reviewed and shows right moderate pleural effusion, PE in RUL and partial KODAK. Patient currently on IV heparin drip as a scheduled for right ultrasound-guided thoracocentesis. Mild hypoxia Troponins and BNP elevated probably due to history of heart failure and PE 06/14 shortness of breath improved after thoracocentesis. Currently on 2 L of oxygen. 2. High troponin possible due to non-STEMI probably exacerbated by CHF and PE: Troponin is high 1000 and gradually came down about 800. 2D echo shows EF is 20% with severely hypokinetic apex and anteroseptal region. Discussed with the language instructor Dr. Jerod Claros. Patient does not have chest pain or shortness of breath. Echo shows EF 20%, moderate concentric LVH, severe systolic segmental systolic dysfunction. He had will treat medically with beta-solange. Patient has allergy with lisinopril angioedema. Clinical suspicion of possible Takotsubo cardiomyopathy based on the segmental wall motion abnormality but language instructor recommended medical management 06/14: Short run of NSVT. Hypokalemia replacement ordered. Sentiments and phosphorus normal. On carvedilol. Discussed with the language instructor today. 3. Right moderate pleural effusion: Ultrasound-guided thoracocentesis is ordered. 06/14: Patient on 1030 mL fluid drained. Fluid analysis reviewed. serum LDH 295, serum protein 7.7. Fluid TP 7.1, LDH 299. As per lights criteria, fluid is exudative but patient on diuretic. Gram stain does not show growth. Hypokalemia: K3.5. Low normal. Oral potassium ordered - History of breast cancer -Remote with mastectomy 15 years ago -Status post radiation therapy Essential hypertension -Hold home HCTZ -Continue home amlodipine History of angioedema -Occurred with lisinopril and desipramine Probably not good for losartan Depression -Continue home sertraline Obesity -BMI 33.6 -Recommend weight loss DVT prophylaxis On heparin drip as noted above CODE STATUS -DNR CCA no intubation Charges/Coding Addendum Addendum: Patient multiple active issues, PE, severe cardiomyopathy with EF 20% and pleural effusion discussed with patient's and her daughter present in the room Visit Charges Inpatient E&M: 60066 Subs Hosp L2
--- NOTE | 2024-06-14 15:08 | CASEMGMT ---
Discharge Planning A list of?HH providers including quality and resource use data and consistent with the patient's preferred geographic region, medical needs, and insurance network was created in [employer] Guide.? This list was provided to the RN MARIA GUADALUPE. Ada Jeffries, Discharge Planning Asst.
--- NOTE | 2024-06-14 15:22 | CASEMGMT ---
TONIA LERMA received order for palliative consult. Palliative screening tool completed and referral sent to [facility]. TONIA LERMA in to discuss discharge planning, family at bedside. Patient wishes to discharge home, family interested in HHC. TONIA LERMA provided HHC list, patient prefers [facility]. Patient and family had no further needs or concerns. Patient had no further questions. TONIA LERMA sent referral to [facility], awaiting acceptance. CM will continue to follow this patient and plan for a safe discharge.
[2024-06-15 03:01] VITALS: BP 115/69; PULSE 70; RESP 18; TEMP 36.3; O2SAT 92
[2024-06-15 04:23] VITALS: BMI 33.6
[2024-06-15 05:20] LABS: Absolute Lymphocyte Count 0.53 X10^3/uL (0.83-4.51); Basophil# 0.05 X10^3/uL; Basophil% 0.6 % (0-1); Eosinophil# 0.15 X10^3/uL; Eosinophils% 1.9 % (0-5); Hematocrit 39.1 % (37-47); Hemoglobin 12.7 g/dL (12.0-15.0); Lymphocyte # 0.53 X10^3/ul (0.83-4.51); Lymphocyte % 6.8 % (19-41); Mean Corp Hgb Conc 32.5 g/dL (32-36); Mean Corpuscular Hgb 29.3 pg (27.0-32.0); Mean Corpuscular Volume 90.3 fL (81-99); Mean Platelet Vol. 10.7 fl (6.2-12.0); Monocyte# 0.95 X10^3/uL; Monocyte% 12.1 % (0-10); NRBC Flagged by Analyzer 0 % (0-5); Neutrophil % 76.6 % (47-70); POSITIVE DIFFERENTIAL YES; Platelet Count 260 K/mm3 (150-450); RBC Distribution Width CV 14.4 % (11.6-14.6); RBC Distribution Width SD 47.4 fl (35.1-43.9); Red Blood Count 4.33 M/mm3 (4.2-5.4); White Blood Count 7.8 K/mm3 (4.4-11.0)
[2024-06-15 05:40] LABS: Anion Gap 7 (5-15); BUN 34 mg/dL (7-18); Calcium,Total 9.1 mg/dL (8.5-10.1); Chloride 104 mmol/L (98-107); EST Glomerular Filtration Rate 56 mL/min (>60); Est Glom Filt Rate - Afr Amer 68 mL/min (>60); Estimated Creatinine Clearance 46.81 ml/min; Glucose 113 mg/dL (74-106); Potassium 4.1 mmol/L (3.5-5.1); Sodium Level 135 mmol/L (136-145)
[2024-06-15 09:00] VITALS: BP 111/60; PULSE 73; RESP 18; TEMP 36.4; O2SAT 94
[2024-06-15] MEDS: Furosemide 40 MG/4 ML Vial IV (10:04)
[2024-06-15] MEDS: amLODIPine 5 MG Tablet PO (10:04)
[2024-06-15] MEDS: Sertraline 50 MG Tablet PO (10:04)
[2024-06-15] MEDS: Carvedilol 6.25 MG Tablet PO (10:04)
[2024-06-15] MEDS: HEPARIN/D5w 25,000 UNITS 25,000 UNITS/250 ML IV.SOLN. 12 UNITS CONT INF (10:25)
--- NOTE | 2024-06-15 11:06 | DCINST_ITS ---
Discharge Instructions Diet Discharge Diet: 2000 mg Sodium Diet DC O2, CPAP, BIPAP needs Home O2 Discharge instructions: Yes Type of respiratory needs?: Oxygen Oxygen frequency: Continuous Continuous oxygen liters per minute: 3 L/min Dressing / Incision Discharge Activity: Return to Normal Activity Weight Bearing Status: Weight bearing as tolerated Dressing / Incision Call your doctor if you observe: Fever of 101 or Higher, Coldness, Increased Pain, Numbness or Tingling, Change in Color, Inability to urinate, Inability to have a bowel movement, Shortness of breath, Dizziness, Fainting spells, Swelling in the ankles, Chest pain, Prolonged hiccupping, Increased palpitations (irregular heartbeat) and Calf discomfort Follow Up Care When: IN 2 WEEKS Test Results: Test results from this visit will be discussed in further detail at your follow- up appointment, if applicable. Discharge Plan Admission Admit Date/Time: 06/12/24 16:32 Primary Reason for Your Visit: No lobar PE, heart failure exacerbation, right pleural effusion Attending Provider: Kit Loya Primary Care Provider: Sam York Consulting Providers: Sagrario Quintana Discharge Orders/Prescriptions Prescriptions: New carvedilol 6.25 mg Tablet 6.25 mg PO BID 30 Days Qty: 60 2RF Rx Instructions: Hold for heart less than 50 or systolic blood pressure less than 100 mmHg. sennosides-docusate sodium [Stimulant Laxative Plus] 8.6-50 mg Tablet 2 tab PO BID PRN PRN (Reason: Constipation) Qty: 0 0RF Eliquis 5 mg Tablet 10 mg PO BID Qty: 0 0RF Rx Instructions: 10 mg twice daily for 1 week till May 2024 and then 5 mg twice daily to continue for total of 6 months acetaminophen 325 mg Tablet 650 mg PO Q6H PRN PRN (Reason: Pain 1-10 Or Fever >100.7) Qty: 0 0RF furosemide 40 mg tablet 40 mg PO DAILY 30 Days Qty: 30 2RF Rx Instructions: Take extra 40 mg dose at 5 PM for increased leg swelling or weight gain 5 pounds in 1 week. potassium chloride 20 mEq tablet,ER particles/crystals 20 meq PO DAILY 30 Days Qty: 30 0RF Continued epinephrine 0.3 mg/0.3 mL auto-injector 0.3 ml IM PRN sertraline 50 mg tablet 50 mg PO DAILY amlodipine 5 MG tablet 5 mg PO DAILY Qty: 30 0RF Patient Comments: TAKE 1 TABLET BY MOUTH EVERY DAY Rx Instructions: Hold for SBP less than 130 mmHg Discontinued hydrochlorothiazide 12.5 mg capsule 12.5 mg PO DAILY Referrals / Follow Up: Jerod Claros MD [Med Staff - Active Staff] - Within 1 Month Sam York MD [Primary Care Provider] - Felicitas Delatorre MD [Med Staff - Active Staff] - Within 3 Months Miroslava Carlson PA [Med Staff - Adv Practice Prof] - Within 2 Weeks Disposition Disposition (needs filled in before D/C Order can be placed): Home Health Service
[2024-06-15 11:22] VITALS: O2SAT 95
--- NOTE | 2024-06-15 11:31 | DCINST_ITS ---
Discharge Instructions Follow Up Care Test Results: Test results from this visit will be discussed in further detail at your follow- up appointment, if applicable. Discharge Plan Admission Admit Date/Time: 06/12/24 16:32 Attending Provider: Kit Loya Primary Care Provider: Sam York Consulting Providers: Sagrario Quintana Discharge Orders/Prescriptions Prescriptions: New carvedilol 6.25 mg Tablet 6.25 mg PO BID 30 Days Qty: 60 2RF Rx Instructions: Hold for heart less than 50 or systolic blood pressure less than 100 mmHg. sennosides-docusate sodium [Stimulant Laxative Plus] 8.6-50 mg Tablet 2 tab PO BID PRN PRN (Reason: Constipation) Qty: 0 0RF Eliquis 5 mg Tablet 10 mg PO BID Qty: 0 0RF Rx Instructions: 10 mg twice daily for 1 week till May 2024 and then 5 mg twice daily to continue for total of 6 months acetaminophen 325 mg Tablet 650 mg PO Q6H PRN PRN (Reason: Pain 1-10 Or Fever >100.7) Qty: 0 0RF furosemide 40 mg tablet 40 mg PO DAILY 30 Days Qty: 30 2RF Rx Instructions: Take extra 40 mg dose at 5 PM for increased leg swelling or weight gain 5 pounds in 1 week. Continued epinephrine 0.3 mg/0.3 mL auto-injector 0.3 ml IM PRN sertraline 50 mg tablet 50 mg PO DAILY amlodipine 5 MG tablet 5 mg PO DAILY Qty: 30 0RF Patient Comments: TAKE 1 TABLET BY MOUTH EVERY DAY Rx Instructions: Hold for SBP less than 130 mmHg Discontinued hydrochlorothiazide 12.5 mg capsule 12.5 mg PO DAILY Referrals / Follow Up: Sam York MD [Primary Care Provider] - Disposition Discharge Orders: Discharge Patient (Routine); Ordered 06/15/24 Ordered By: Dr. Kit Loya
--- NOTE | 2024-06-15 12:15 | CASEMGMT ---
Addendum entered by Jonas Nash 06/15/24 17:10: Home O2 testing has been completed. Pt qualifies for O2 @ 2 L/M @ rest and 3 L/M w/exertion. Pt, , and dtrChrissy, are all aware. They confirm pt does have a pulse ox @ home. Dtr, pt and all denied having any further discharge needs or concerns and thanked TONIA LERMA for assistance. Script obtained, sent to [facility] via [employer], and O2 has been delivered to pt's room. Addendum entered by Jonas Nash 06/15/24 14:51: Eliquis has been e-scribed to [facility] retail pharmacy. TONIA LERMA placed call to the pharmacy, savings card has been applied, and there will be no cost to pt for this. Dtr made aware and aware this is a ttby-oe-y-lifetime use card. Addendum entered by Jonas Nash 06/15/24 14:25: Per Ada, lisa executive assistant, family has changed their minds and now wish to take pt home. TONIA LERMA to room. DtrChrissy, confirms they have now decided to take pt home and would still like [facility], stating they feel this would be the best for pt. She states between her and her sister and also hiring private-duty caregivers, they are going to be able to provide 24/7 care. She is aware home O2 testing to be completed and pt will be discharged home on O2, if she qualifies. She was also made aware pt discharging home on Eliquis, explained 30-day free-trial offer card, that it will be applied by [facility] retail pharmacy, and to f/u with PCP if refills are not affordable. She voices understanding. Call placed to Tammi @ [facility] and she was made aware pt is now going home today. She states they can still accept her w/SOC slated for tomorrow. She was also made aware a Palliative referral has been made. She requested SW be added to [facility] order. This has been done. Original Note: TONIA LERMA NOTE: Discharge order is in. RN MARIA GUADALUPE to room. Pt sitting up in chair in room. and dtr, Chrissy, is @ bedside. Introduced self and role. Chrissy states the dc plan has now changed and they would like pt to go to a SNF. Chrissy states pt is needing assistance w/ambulation and they do not have 24/7 care set up yet. Made aware a SNF will be provided for them to review. Ethel YEE, and dc executive assistant, Ada, made aware. Call placed to Tammi @ [facility] and made aware pt is now going to a SNF, [facility] cx'viraj. Li VALVERDEN RN CM
--- NOTE | 2024-06-15 12:16 | TREXTCAR_ITS ---
Diet Diet Order/Speech Therapy: 06/12/24 19:07 Diet: Cardiac - Heart Healthy Food consistency:: Regular Liquid Consistency:: Regular/Thin Dietary Modifications:: Sodium Restricted Fluid restriction:: 1750 mL Problem/Diagnosis (1) Hypokalemia: Status: Acute Code(s): E87.6 - Hypokalemia (2) Complete left bundle branch block: Status: Acute Code(s): I44.7 - Left bundle-branch block, unspecified (3) Pleural effusion: Status: Acute Code(s): J90 - Pleural effusion, not elsewhere classified (4) Hypoxia: Status: Acute Code(s): R09.02 - Hypoxemia (5) Elevated troponin: Status: Acute Code(s): R79.89 - Other specified abnormal findings of blood chemistry (6) Pulmonary emboli: Status: Acute Code(s): I26.99 - Other pulmonary embolism without acute cor pulmonale Plan 38-year-old female was sent from PCP office for hypoxia. Complaint of 1 month history of fatigue, weakness and dyspnea. No cough. Pulse ox 88% in the office. 1. Acute hypoxic respiratory failure secondary to bilateral lobar pulmonary embolism and right-sided pleural effusion: CTA individually reviewed and shows right moderate pleural effusion, PE in RUL and partial KODAK. Patient currently on IV heparin drip as a scheduled for right ultrasound-guided thoracocentesis. Mild hypoxia Troponins and BNP elevated probably due to history of heart failure and PE 06/14 shortness of breath improved after thoracocentesis. Currently on 2 L of oxygen. 2. High troponin possible due to non-STEMI probably exacerbated by CHF and PE: Troponin is high 1000 and gradually came down about 800. 2D echo shows EF is 20% with severely hypokinetic apex and anteroseptal region. Discussed with the solution director Dr. Jerod Claros. Patient does not have chest pain or shortness of breath. Echo shows EF 20%, moderate concentric LVH, severe systolic segmental systolic dysfunction. He had will treat medically with beta-solange. Patient has allergy with lisinopril angioedema. Clinical suspicion of possible Takotsubo cardiomyopathy based on the segmental wall motion abnormality but solution director recommended medical management 06/14: Short run of NSVT. Hypokalemia replacement ordered. Sentiments and phosphorus normal. On carvedilol. Discussed with the solution director today. 3. Right moderate pleural effusion: Ultrasound-guided thoracocentesis is ordered. 06/14: Patient on 1030 mL fluid drained. Fluid analysis reviewed. serum LDH 295, serum protein 7.7. Fluid TP 7.1, LDH 299. As per lights criteria, fluid is exudative but patient on diuretic. Gram stain does not show growth. 4. Hypokalemia: K3.5. Low normal. Oral potassium ordered - History of breast cancer -Remote with mastectomy 15 years ago -Status post radiation therapy Essential hypertension -Hold home HCTZ -Continue home amlodipine History of angioedema -Occurred with lisinopril and desipramine Probably not good for losartan Depression -Continue home sertraline Obesity -BMI 33.6 -Recommend weight loss DVT prophylaxis On heparin drip as noted above CODE STATUS -DNR CCA no intubation Allergies/Procedures Done in Hospital Allergies desipramine Allergy (Verified 12/26/20 09:56) Angioedema lisinopril Allergy (Verified 12/26/20 09:56) Angioedema shrimp Allergy (Verified 12/26/20 09:56) Upset Stomach Discharge Plan Admission Admit Date/Time: 06/12/24 16:32 Primary Reason for Your Visit: No lobar PE, heart failure exacerbation, right pleural effusion Attending Provider: Kit Loya Primary Care Provider: Sam York Consulting Providers: Sagrario Quintana Discharge Orders/Prescriptions Prescriptions: New carvedilol 6.25 mg Tablet 6.25 mg PO BID 30 Days Qty: 60 2RF Rx Instructions: Hold for heart less than 50 or systolic blood pressure less than 100 mmHg. sennosides-docusate sodium [Stimulant Laxative Plus] 8.6-50 mg Tablet 2 tab PO BID PRN PRN (Reason: Constipation) Qty: 0 0RF Eliquis 5 mg Tablet 10 mg PO BID Qty: 0 0RF Rx Instructions: 10 mg twice daily for 1 week till May 2024 and then 5 mg twice daily to continue for total of 6 months acetaminophen 325 mg Tablet 650 mg PO Q6H PRN PRN (Reason: Pain 1-10 Or Fever >100.7) Qty: 0 0RF furosemide 40 mg tablet 40 mg PO DAILY 30 Days Qty: 30 2RF Rx Instructions: Take extra 40 mg dose at 5 PM for increased leg swelling or weight gain 5 pounds in 1 week. potassium chloride 20 mEq tablet,ER particles/crystals 20 meq PO DAILY 30 Days Qty: 30 0RF Continued epinephrine 0.3 mg/0.3 mL auto-injector 0.3 ml IM PRN sertraline 50 mg tablet 50 mg PO DAILY amlodipine 5 MG tablet 5 mg PO DAILY Qty: 30 0RF Patient Comments: TAKE 1 TABLET BY MOUTH EVERY DAY Rx Instructions: Hold for SBP less than 130 mmHg Discontinued hydrochlorothiazide 12.5 mg capsule 12.5 mg PO DAILY Referrals / Follow Up: Sam York MD [Primary Care Provider] - Jerod Claros MD [Med Staff - Active Staff] - Within 1 Month Felicitas Delatorre MD [Med Staff - Active Staff] - Within 3 Months Miroslava Carlson PA [Med Staff - Adv Practice Prof] - Within 2 Weeks Disposition Disposition (needs filled in before D/C Order can be placed): [facility] Facility
[2024-06-15] MEDS: APIXABAN 5 MG TABLET 10 MG PO (12:18)
--- NOTE | 2024-06-15 12:19 | CASEMGMT ---
Discharge Planning A list of?SNF providers including quality and resource use data and consistent with the patient's preferred geographic region, medical needs, and insurance network was created in [facility] Guide.? This list was provided to the [facility]. Ada Jeffries, Discharge Planning Asst
--- NOTE | 2024-06-15 13:25 | CASEMGMT ---
Addendum entered by Ada Jeffries 06/15/24 14:03: Pt has decided to return home. RN CM and [facility] updated. Ada Jeffries DC Planning Asst. Original Note: Referral sent to [facility]. Ada Jeffries DC Planning Asst.
[2024-06-15 13:47] LABS: Pathologist Comment/Body Fluid Reviewed
--- NOTE | 2024-06-15 14:08 | DS.PCM_ITS ---
Providers Date of Admission: 06/12/24 Primary Care Physician: Dr. Sam York MD Reason For Visit: ACUTE HYPOXIC RESPIRATORY FAILURE/PULMONARY EBOLI Diagnosis Discharge Diagnosis (1) Hypokalemia: Status: Acute Code(s): E87.6 - Hypokalemia (2) Complete left bundle branch block: Status: Acute Code(s): I44.7 - Left bundle-branch block, unspecified (3) Pleural effusion: Status: Acute Code(s): J90 - Pleural effusion, not elsewhere classified (4) Hypoxia: Status: Acute Code(s): R09.02 - Hypoxemia (5) Elevated troponin: Status: Acute Code(s): R79.89 - Other specified abnormal findings of blood chemistry (6) Pulmonary emboli: Status: Acute Code(s): I26.99 - Other pulmonary embolism without acute cor pulmonale Plan 38-year-old female was sent from PCP office for hypoxia. Complaint of 1 month history of fatigue, weakness and dyspnea. No cough. Pulse ox 88% in the office. 1. Acute hypoxic respiratory failure secondary to bilateral lobar pulmonary embolism and right-sided pleural effusion: CTA individually reviewed and shows right moderate pleural effusion, PE in RUL and partial KODAK. Patient currently on IV heparin drip as a scheduled for right ultrasound-guided thoracocentesis. Mild hypoxia Troponins and BNP elevated probably due to history of heart failure and PE 06/14 shortness of breath improved after thoracocentesis. Currently on 2 L of oxygen. 06/15: Patient requires 2 to 3 L of oxygen. Oxygen testing reviewed and the patient requires home oxygen. The patient is ambulatory in home and in the community and requires home oxygen with portability. Starter dose pack of Eliquis given and discussed with the pharmacist. Patient needs about 6 months of anticoagulation treatment. Follow-up with PCP for refill. Follow-up with care technician after completion of continuation treatment. 2. High troponin possible due to non-STEMI probably exacerbated by CHF and PE: Troponin is high 1000 and gradually came down about 800. 2D echo shows EF is 20% with severely hypokinetic apex and anteroseptal region. Discussed with the finishing department supervisor Dr. Jerod Claros. Patient does not have chest pain or shortness of breath. Echo shows EF 20%, moderate concentric LVH, severe systolic segmental systolic dysfunction. He had will treat medically with beta-solange. Patient has allergy with lisinopril angioedema. Clinical suspicion of possible Takotsubo cardiomyopathy based on the segmental wall motion abnormality but finishing department supervisor recommended medical management 06/14: Short run of NSVT. Hypokalemia replacement ordered. Sentiments and phosphorus normal. On carvedilol. Discussed with the finishing department supervisor today. 06/15: Patient had small runs of NSVT but potassium electrolytes are in normal range. Probably due to severe cardiomyopathy. Prescribed furosemide and potassium supplement. Follow-up BMP/electrolytes with PCP. Follow-up in [place] [facility] office in 2 weeks. 3. Right moderate pleural effusion: Ultrasound-guided thoracocentesis is ordered. 06/14: Patient on 1030 mL fluid drained. Fluid analysis reviewed. serum LDH 295, serum protein 7.7. Fluid TP 7.1, LDH 299. As per lights criteria, fluid is exudative but patient on diuretic. Gram stain does not show growth. 4. Hypokalemia: K3.5. Low normal. Oral potassium ordered - History of breast cancer -Remote with mastectomy 15 years ago -Status post radiation therapy Essential hypertension -Hold home HCTZ -Continue home amlodipine History of angioedema -Occurred with lisinopril and desipramine Probably not good for losartan Depression -Continue home sertraline Obesity -BMI 33.6 -Recommend weight loss DVT prophylaxis On heparin drip as noted above CODE STATUS -DNR CCA no intubation Discharge medication reconciliation done. Discharge follow-up instructions completed. Discharge process discussed with the patient and all questions were answered to patient's satisfaction. Follow with PCP in 1 to 2 weeks Total time spent, exact 35 minutes on discharge meds reconciliation, examination, coordination of care with nurses and ancillary staff, review of imaging and blood test and discussion with the patient on follow-up instructions. Medications at Discharge Home Medications epinephrine 0.3 mg/0.3 mL injection, auto-injector 0.3 ml IM PRN 06/12/24 sertraline 50 mg tablet 50 mg PO DAILY 06/12/24 acetaminophen 325 mg tablet 650 mg (2 x 325 mg) PO Q6H PRN PRN Pain 1-10 Or Fever >100.7 #0 tabs 06/15/24 amlodipine 5 mg tablet 5 mg PO DAILY #30 tabs 06/15/24 apixaban 5 mg (74 tabs) tablets in a dose pack (Eliquis DVT-PE Treat 30D Start) 5 mg PO BID #74 tabs 06/15/24 carvedilol 6.25 mg tablet 6.25 mg PO BID 1 month #60 tabs 06/15/24 furosemide 40 mg tablet 40 mg PO DAILY 1 month #30 tabs 06/15/24 potassium chloride 20 mEq tablet,extended release(part/cryst) 20 meq PO DAILY 1 month #30 tabs 06/15/24 sennosides 8.6 mg-docusate sodium 50 mg tablet (Stimulant Laxative Plus) 2 tab PO BID PRN PRN Constipation #0 tabs 06/15/24 Physical Exam Narrative seen and examined. She is having short runs of NSVT due to low EF. Electrolytes normal limit. Shortness of breath has improved. Denies chest pain or shortness of breath. Physical exam: General: Alert, Oriented x3, Cooperative BMI 32.9 kg per square HEENT: Atraumatic, PERRLA, EOMI, Normocephalic Oral: No Gingival or Mucosal Lesions/ Ulcerations Neck: Supple, No JVD, Negative Carotid Bruits Chest wall/Lungs: Air entry diminished in bilateral lung bases. No crepitation/rhonchi Cardiovascular: Regular rate, Regular Rhythm, Normal S1, Normal S2, systolic murmur Abdomen: Bowel Sounds Present, Soft, Non Tender, Non-Distended : No dysuria. No renal angle tenderness. No suprapubic tenderness. Extremities: No edema, Capillary Refill Less than 3 Seconds Skin: No rashes, No breakdown Musculoskeletal: No Tenderness to Palpation of Joints or Extremities. ROM wrist Neurological: Cranial nerves II-XII grossly intact, DTR 2+/4. No acute focal neurological deficit. Psych/Mental Status: Normal Affect, Appropriate. Weight / BMI Weight Weight: 208 lb 8.917 oz Body Mass Index (BMI) 33.6 ABG / Lab / Microbiology Data 06/15/24 05:02 06/15/24 05:02 Laboratory: Laboratory Results - last 24 hr 06/13/24 13:45: Fl Pathologist Comment Reviewed 06/14/24 22:55: APTT 63.0 H 06/15/24 05:02: WBC 7.8, RBC 4.33, Hgb 12.7, Hct 39.1, MCV 90.3, MCH 29.3, MCHC 32.5, RDW Std Deviation 47.4 H, RDW Coeff of Evangelista 14.4, Plt Count 260, MPV 10.7, Immature Gran % (Auto) 2.000 H, Neut % (Auto) 76.6 H, Lymph % (Auto) 6.8 L, [place] % (Auto) 12.1 H, Eos % (Auto) 1.9, Baso % (Auto) 0.6, Absolute Neuts (auto) 6.0, Absolute Lymphs (auto) 0.53 L, Nucleated RBC % 0, APTT 66.0 H, Sodium 135 L, Potassium 4.1, Chloride 104, Carbon Dioxide 23.0, Anion Gap 7, BUN 34 H, Creatinine 1.00, Estim Creat Clear Calc 46.81, Est GFR (MDRD) Af Amer 68, Est GFR (MDRD) Non-Af 56 L, BUN/Creatinine Ratio 34.0 H, Glucose 113 H, Calcium 9.1 Microbiology: Microbiology 06/13/24 13:45 Fluid - Pleural (Lung) Gram Stain - Final 06/13/24 13:45 Fluid - Pleural (Lung) Body Fluid Culture - Preliminary No growth-Final to follow 06/13/24 13:45 Fluid - Pleural (Lung) Anaerobic Culture - Preliminary No growth in 48 hours. 06/12/24 15:10 Mucosa - Nose Coronavirus COVID-19 PCR - Final D/C Instructions Discharge Diet: 2000 mg Sodium Diet Weight Bearing Status: Weight bearing as tolerated Call your doctor if you observe: Fever of 101 or Higher, Coldness, Increased Pain, Numbness or Tingling, Change in Color, Inability to urinate, Inability to have a bowel movement, Shortness of breath, Dizziness, Fainting spells, Swelling in the ankles, Chest pain, Prolonged hiccupping, Increased palpitations (irregular heartbeat) and Calf discomfort DC O2, CPAP, BIPAP Needs Home O2 Discharge instructions: Yes Type of respiratory needs?: Oxygen Oxygen frequency: Continuous Continuous oxygen liters per minute: 3 L/min DC home with Oxygen: No When: IN 2 WEEKS Meaningful Use Info Meaningful Use Meaningful Use Diagnoses (Choose all that apply): CHF CHF GIFTY/ARB ordered at discharge?: No Reason GIFTY/ARB not ordered?: Angioedema Documented LVEF (%): 20 Ischemic Stroke Statin Dosing Therapy Reference: STATIN DOSE THERAPY REFERENCE: * Patients > 75 years receive moderate or high dose statin therapy. * Patients 75 years or YOUNGER should receive HIGH intensity statin dose unless contraindicated. You will be required to document reason for non-treatment if statin daily dose does not meet guidelines. HIGH DOSE STATIN THERAPY DAILY Atorvastatin > than or = to 40 mg Rosuvastatin > than or = to 20 mg Amlodipine + Atorvastatin > than or = to 2.5/40 mg Ezetimibe + Simvastatin 10/80 mg Simvastatin 80mg Discharge Plan Admission Admit Date/Time: 06/12/24 16:32 Primary Reason for Your Visit: No lobar PE, heart failure exacerbation, right pleural effusion Attending Provider: Kit Loya Primary Care Provider: Sam York Consulting Providers: Sagrario Quintana Instructions Additional Instructions / Restrictions: Patient needs 6 months of anticoagulation treatment for first time pulmonary embolism. Follow with PCP for refill Discharge Orders/Prescriptions Prescriptions: New carvedilol 6.25 mg Tablet 6.25 mg PO BID 30 Days Qty: 60 2RF Rx Instructions: Hold for heart less than 50 or systolic blood pressure less than 100 mmHg. sennosides-docusate sodium [Stimulant Laxative Plus] 8.6-50 mg Tablet 2 tab PO BID PRN PRN (Reason: Constipation) Qty: 0 0RF acetaminophen 325 mg Tablet 650 mg PO Q6H PRN PRN (Reason: Pain 1-10 Or Fever >100.7) Qty: 0 0RF furosemide 40 mg tablet 40 mg PO DAILY 30 Days Qty: 30 2RF Rx Instructions: Take extra 40 mg dose at 5 PM for increased leg swelling or weight gain 5 pounds in 1 week. potassium chloride 20 mEq tablet,ER particles/crystals 20 meq PO DAILY 30 Days Qty: 30 0RF Eliquis DVT-PE Treat 30D Start 5 mg (74 tabs) tablets,dose pack 5 mg PO BID Qty: 74 4RF Rx Instructions: 10 mg (2 tabs) twice daily for 7 days till 06/21/24 and then 5 mg twice daily to continue Continued epinephrine 0.3 mg/0.3 mL auto-injector 0.3 ml IM PRN sertraline 50 mg tablet 50 mg PO DAILY amlodipine 5 MG tablet 5 mg PO DAILY Qty: 30 0RF Patient Comments: TAKE 1 TABLET BY MOUTH EVERY DAY Rx Instructions: Hold for SBP less than 130 mmHg Discontinued hydrochlorothiazide 12.5 mg capsule 12.5 mg PO DAILY Referrals / Follow Up: Jerod Claros MD [Med Staff - Active Staff] - Within 1 Month Sam York MD [Primary Care Provider] - Felicitas Delatorre MD [Med Staff - Active Staff] - Within 3 Months Miroslava Carlson PA [Med Staff - Adv Practice Prof] - Within 2 Weeks Disposition Disposition (needs filled in before D/C Order can be placed): Home Health Service Charges/Coding Visit Charges Inpatient E&M: 99244 Disch Hosp >30min
[2024-06-15 15:00] VITALS: O2SAT 86; O2SAT 87; O2SAT 91; O2SAT 92
[2024-06-15 15:35] VITALS: BP 138/72; PULSE 69; RESP 16; TEMP 36.5; O2SAT 93
[2024-06-19 11:25] LABS: Cytology, Body Fluid / CSF SEE PATHOLOGY REPORT
== END 2024-06-15 17:29 | disposition home health service (06) | DRG 175 ==
LOC: ED 15:53 → PCU 18:01
PROVIDERS: Admitting Provider Internal Medicine; Emergency Provider Emergency Medicine; PCP Family Medicine; Visit Provider Internal Medicine
DX: I26.99 Other pulmonary embolism without acute cor pulmonale (principal); J96.01 Acute respiratory failure with hypoxia; I21.4 Non-ST elevation (NSTEMI) myocardial infarction; I50.20 Unspecified systolic (congestive) heart failure; J90 Pleural effusion, not elsewhere classified; I11.0 Hypertensive heart disease with heart failure; F32.A Depression, unspecified; Z68.33 Body mass index [BMI] 33.0-33.9, adult; E87.6 Hypokalemia; I44.7 Left bundle-branch block, unspecified; Z66 Do not resuscitate; E66.9 Obesity, unspecified; Z92.3 Personal history of irradiation
CPT/HCPCS: 32555; 36415; 71046; 71275; 80048; 80053; 80061; 81002; 82945; 83615; 83735; 83880; 84100; 84157; 84484; 85025; 85610; 85730; 87070; 87075; 87205; 87635; 88108; 88305; 88313; 88341; 88342; 89050; 93005; 93306; 94668; 97116; 97162; 97166; 97530; 99252; 99285; Q9957; Q9967; A4216; C8929; G0463; J1940